=== PATIENT | male | born 1960 | race Caucasian/White ===

== ENCOUNTER → 2019-01-19 10:04 | Outpatient (CLI) | payer MEDICARE, SELFPAY ==
--- NOTE | 2019-01-19 | DI.CT.S_ITS ---
PROCEDURE: CT ANGIO HEAD INDICATIONS: Transient cerebral ischemic attack, unspecified TECHNIQUE: Precontrast 4.5 mm thick angled axial sections acquired from the foramen magnum to the vertex. After the administration of intravenous contrast, 1 mm thick sections acquired through the [place]. Postcontrast 4.5 mm thick sections then re-acquired from the foramen magnum to the vertex. 10 mm thick tfnexxy-vizgfkqtv-udutgwwztl (MIP) reformats were acquired of the central intracranial vasculature. For radiation dose reduction, the following was used: automated exposure control, adjustment of mA and/or kV according to patient size. COMPARISON: None. FINDINGS: Image quality: Excellent. Anterior circulation: Intracranial internal carotid arteries demonstrate scattered foci of atherosclerotic calcification. Within the cavernous internal carotid arteries, there is approximately 30% luminal narrowing seen on the right and approximately 20% luminal narrowing seen on the left. The flow within the paired anterior cerebral arteries is normal and symmetric. There is a diminutive right A1 segment, with a corresponding robust left A1 segment. This is considered to be a normal developmental variant of the [place], of typically no clinical consequence. The flow within the middle cerebral arteries is normal and symmetric. The anterior communicating artery is seen. No aneurysms are seen. Posterior circulation: Visualized portions of the vertebral arteries demonstrate normal caliber, and join to form a normal appearing basilar artery. Flow within the posterior cerebral arteries is normal and symmetric. No aneurysms are seen. CSF spaces: Ventricles are normal in size and shape. Basal cisterns are patent. No extra-axial fluid collections. Brain: No midline shift. No intracranial bleeds or masses. [place]-white matter interface appears intact. Skull and face: Calvarium and facial bones appear intact, without suspicious lesions. Sinuses: Visualized sinuses and mastoids are clear. IMPRESSION: No acute intracranial process is seen. No significant renal arterial abnormality can be seen. [place] anomaly noted, which is not regarded to be clinically significant. Dictated by: Duane Reyes M.D. on 01/19/2019 at 11:19 Approved by: Duane Reyes M.D. on 01/19/2019 at 11:22
== END ==
PROVIDERS: PCP Physician Assistant Medical; Visit Provider Physician Assistant Medical
DX: G45.9 Transient cerebral ischemic attack, unspecified (principal)
CPT/HCPCS: 70496; Q9967

== ENCOUNTER → 2019-02-05 11:24 | Outpatient (CLI) | payer MEDICARE, SELFPAY ==
--- NOTE | 2019-02-05 | DI.US.S_ITS ---
PROCEDURE: US CAROTID DOPPLER BI INDICATIONS: UNSPECIFIED VISUAL DISTURBANCES TECHNIQUE: Color and pulse Doppler interrogation was performed of both carotid systems, with image documentation and velocity measurements. COMPARISON: [facility], CT, CT ANGIO HEAD, 01/19/2019, 10:32. FINDINGS: Stenosis calculations are based on SRU (Society of Radiologists in Ultrasound) criteria. The flow velocities and the arterial waveforms are normal within both carotid arterial systems. Atherosclerotic plaque is seen on both sides. The estimated degree of internal carotid artery stenosis is less than 50%. Antegrade flow is confirmed within both vertebral arteries. However, there is abnormal flow seen within the right vertebral artery, which may be related to early subclavian steal. The antecubital brachial blood pressures are symmetric measuring 130/83 on the right and 135/72 on the left. This study is limited by body habitus. IMPRESSION: No hemodynamically significant stenosis is seen. Dictated by: Duane Reyes M.D. on 02/05/2019 at 16:10 Approved by: Duane Reyes M.D. on 02/05/2019 at 16:12
== END ==
PROVIDERS: PCP Physician Assistant Medical; Visit Provider Physician Assistant Medical
DX: H53.9 Unspecified visual disturbance (principal)
CPT/HCPCS: 93880

== ENCOUNTER → 2019-12-07 08:31 | Outpatient (CLI) | payer MEDICARE, SELFPAY ==
--- NOTE | 2019-12-07 | DI.MRI.S_ITS ---
PROCEDURE: MR HIP LT WO CON INDICATIONS: LEFT HIP PAIN TECHNIQUE: Noncontrast coronal T1 spin echo and STIR through the bony pelvis. Coronal and axial T2 fast spin echo with fat saturation, sagittal T1 spin echo, and oblique axial T2 fast spin echo with fat saturation through the hip. COMPARISON: None. FINDINGS: Image quality: There is mild motion artifact. Bones and joints: Bone marrow of the pelvic ring and proximal femurs demonstrate normal overall signal. No intraosseous lesions or fractures. No avascular necrosis of the femoral heads. The visualized lower lumbar spine demonstrates moderate degenerative disc disease at the lumbosacral junction. Tendons and ligaments: The gluteus medius and minimus tendons appear intact. There is mild edema along the myotendinous junction of the gluteus medius posteriorly suggestive of a mild strain. Minimal peritendinous edema is also demonstrated along the distal gluteal tendons at the greater trochanter. The adjacent proximal iliotibial band also appears intact. The iliopsoas tendon appears intact, without adjacent bursal fluid collections or evidence for impingement syndrome. The origin of the hamstring tendon is intact at the ischial tuberosity, as well as the associated sacrotuberous ligament. The straight and reflected heads of the rectus femoris muscle origin appear intact, as well as the conjoint tendon. The ligamentum teres appears intact where visualized. Labrum and cartilage: The acetabular labrum demonstrates degenerative signal with mild degenerative tearing in the anterosuperior labrum. Cartilage surface of the femoral head demonstrates mild thinning superiorly. The alpha angle of the femur is within normal limits at less than 55 degrees. Soft tissues: Visualized muscles demonstrate normal bulk and internal signal. Quadratus femoris muscle demonstrates no internal edema to suggest ischiofemoral impingement. The proximal sciatic neurovascular bundle appears normal adjacent to the hamstring tendons. No free pelvic fluid. There is mild trabeculation of the bladder wall, with evaluation limited due to incomplete distention, suggestive of chronic bladder outlet obstruction. There is heterogeneous enlargement of the prostate. Visualized bowel loops appear normal in caliber. IMPRESSION: 1. Mild degenerative tearing of the anterosuperior labrum. 2. Mild cartilage degeneration superiorly in the left hip. 3. Mild strain at the myotendinous junction of the gluteus medius posteriorly. Dictated by: Stephane Sherwood M.D. on 12/07/2019 at 9:57 Approved by: Stephane Sherwood M.D. on 12/07/2019 at 10:39
== END ==
PROVIDERS: PCP Family Medicine; Referring Provider Physician Assistant Medical; Visit Provider Physician Assistant Medical
DX: M25.552 Pain in left hip (principal); S73.192A Other sprain of left hip, initial encounter; M51.37 Other intervertebral disc degeneration, lumbosacral region; N32.89 Other specified disorders of bladder; N40.0 Benign prostatic hyperplasia without lower urinary tract symptoms
CPT/HCPCS: 73721

== ENCOUNTER → 2020-09-23 10:03 | Outpatient (CLI) | payer OTHER, MEDICARE, SELFPAY ==
--- NOTE | 2020-09-23 | DI.RAD.S_ITS ---
PROCEDURE: XR CHEST 2V INDICATIONS: Chest pain, unspecified TECHNIQUE: 2 views of the chest were acquired. COMPARISON: None. FINDINGS: Surgical changes and devices: None. Lungs and pleura: Scattered subsegmental scarring and/or atelectasis. No acute consolidation. No pleural effusions or pneumothorax. Mediastinum: Mediastinal contours are normal. Heart size is normal. Bones and chest wall: No suspicious bony abnormalities. Soft tissues appear unremarkable. IMPRESSION: No acute disease. Dictated by: Daniel Tee M.D. on 09/23/2020 at 11:29 Approved by: Daniel Tee M.D. on 09/23/2020 at 11:30
--- NOTE | 2020-09-23 | DI.RAD.S_ITS ---
PROCEDURE: XR THORACIC SPINE 2V INDICATIONS: Chest pain, unspecified TECHNIQUE: 3 views of the thoracic spine were acquired. COMPARISON: None. FINDINGS: Bones: No fractures or dislocations. No suspicious bony lesions. Twelve pairs of ribs are noted, and appear intact where visualized. Cervical thoracic spine fixation hardware. Moderate degenerative disc changes noted throughout the thoracic spine. Soft tissues: No paravertebral stripe thickening. IMPRESSION: 1. Multilevel degenerative disc disease. 2. No fracture. No acute osseous lesion. If symptoms and/or clinical suspicion for pathology persists, evaluation with MRI should be considered for further assessment. Dictated by: Clementine Yarbrough MD, PhD on 09/23/2020 at 16:28 Approved by: Clementine Yarbrough MD, PhD on 09/23/2020 at 16:31
[2020-09-23 11:03] LABS: Add Manual Diff / Slide Review NO; Basophils Absolute Auto 100 /uL (0-100); Basophils Percent Auto 0.9 % (0-2); Eosinophils Absolute Auto 200 /uL (0-450); Eosinophils Percent Auto 2.6 % (2-4); Hematocrit 45.1 % (41-53); Hemoglobin 15.1 g/dL (13.5-17.5); Lymphocytes Absolute Auto 2400 /uL (1100-4500); Lymphocytes Percent Auto 26.8 % (25-40); Mean Corpuscular HGB Conc 33.4 % (30-36); Mean Corpuscular Hemoglobin 28.1 PG (26-34); Mean Corpuscular Volume 84.2 fL (80-100); Monocytes Absolute Auto 700 /uL (0-900); Monocytes Percent Auto 8.3 % (3-14); Neutrophils Absolute Auto 5600 /uL (1500-7000); Neutrophils Percent Auto 61.4 % (50-75); Platelet Count 291 X10^3/uL (150-400); Red Blood Cell Count 5.36 X10^6/uL (4.5-5.9); Red Cell Distribution Width 14.2 % (11.6-14.8)
[2020-09-23 11:42] LABS: Alanine Aminotransferase 39 IU/L (<50); Albumin 4.5 g/dL (3.5-5.0); Albumin Globulin Ratio 1.6 (1.0-2.8); Alkaline Phosphatase 83 U/L (38-126); Aspartate Aminotransferase 27 IU/L (17-59); Bilirubin Total 0.4 mg/dL (0.2-1.3); Blood Urea Nitrogen 16 mg/dL (9-20); Calcium 9.2 mg/dL (8.4-10.2); Carbon Dioxide 25 mmol/L (22-32); Chloride 105 mmol/L (98-107); Estimated Glomerular Filt Rate > 60.0 mL/min (>60); Globulin 2.9 g/dL (1.7-4.1); Glucose 108 mg/dL (80-110); HEMOLYSIS < 15 (0-50); Potassium 4.2 mmol/L (3.4-5.1); Sodium 139 mmol/L (137-145); Total Protein 7.4 g/dL (6.3-8.2)
== END ==
PROVIDERS: PCP Physician Assistant; Referring Provider Physician Assistant; Visit Provider Physician Assistant
DX: R07.9 Chest pain, unspecified (principal); M54.9 Dorsalgia, unspecified; M47.814 Spondylosis without myelopathy or radiculopathy, thoracic region; I10 Essential (primary) hypertension
CPT/HCPCS: 36415; 71046; 72070; 80053; 85025

== ENCOUNTER → 2020-10-03 07:06 | Outpatient (CLI) | payer MEDICARE, OTHER, SELFPAY ==
--- NOTE | 2020-10-03 | DI.CT.S_ITS ---
PROCEDURE: CT CHEST ABDOMEN WO CON INDICATIONS: RIGHT UPPER QUADRANT PAIN, RIB PAIN TECHNIQUE: After the administration of oral contrast, 5 mm thick sections acquired from the pulmonary apices to the iliac crests. 5 mm thick coronal and sagittal reformats acquired, with additional 7 mm coronal MIP reformats through the lungs. For radiation dose reduction, the following was used: automated exposure control, adjustment of mA and/or kV according to patient size. COMPARISON: None. FINDINGS: Image quality: Excellent. CHEST: Lungs and pleura: No acute pulmonary opacities. No pleural effusions or pneumothorax. Central and peripheral airways are patent and normal in caliber. Mediastinum: Heart size is normal. No pericardial effusion. No mediastinal adenopathy by size criteria. Thoracic aorta and central pulmonary arteries are normal in size. Esophagus is normal in caliber. No hiatal hernia. Chest wall: A CT surface marker was placed at the lateral right lower chest, seen on series 7, image 65, and the underlying soft tissues shows no evidence of inflammation or cyst. The underlying deeper rib structures are normal as are the intercostal muscles, and the hepatic parenchyma deep to this area also appears normal. No axillary or supraclavicular adenopathy by size criteria. Thyroid gland appears normal where well visualized . ABDOMEN: Solid organs: Liver is normal in size. Gallbladder contains radiolucent gallstones, but shows no evidence of gallbladder inflammation or adjacent biliary distension.. Pancreas is normal in contours. Spleen is normal in size. No adrenal nodules. Both kidneys are normal in size, without hydronephrosis or nephrolithiasis. Peritoneum and bowel: Small and large bowel loops are normal in caliber and wall thickness. No free fluid or air. Nodes and vessels: No retroperitoneal or mesenteric adenopathy by size criteria. Aorta and inferior vena cava are normal in caliber. Miscellaneous: No ventral hernias. IMPRESSION: Etiology of right lateral lower chest rib pain is not identified. The CT surface marker placed allowed exact correlation with the soft tissues and underlying ribs and deeper visceral structures. No evidence of infection or neoplasm is found. Incidental note is made of radiolucent gallstones within the gallbladder lumen, without evidence of gallbladder inflammation or adjacent biliary distension. These gallstones measure approximately 5-10 mm in dimension and would be more accurately assessed if clinically indicated by ultrasound. Dictated by: Jorge Mercado M.D. on 10/03/2020 at 10:24 Approved by: Jorge Mercado M.D. on 10/03/2020 at 10:38
== END ==
PROVIDERS: PCP Physician Assistant; Referring Provider Physician Assistant; Visit Provider Physician Assistant
DX: R07.81 Pleurodynia (principal); R10.11 Right upper quadrant pain; R07.9 Chest pain, unspecified; K80.20 Calculus of gallbladder without cholecystitis without obstruction
CPT/HCPCS: 71250; 74150

== ENCOUNTER → 2020-10-21 09:03 | Outpatient (CLI) | payer OTHER, MEDICARE, SELFPAY ==
[2020-10-21 09:48] LABS: COVID19 -Nasal RAPID Negative (Negative)
== END ==
PROVIDERS: PCP Physician Assistant; Visit Provider Specialist
DX: Z20.822 Contact with and (suspected) exposure to COVID-19 (principal)
CPT/HCPCS: 87635; C9803

== ENCOUNTER 2020-10-22 06:48 | Day surgery (SDC) | payer OTHER, MEDICARE, SELFPAY ==
[2020-10-21 12:34] VITALS: BMI 40.0
[2020-10-22] VITALS (11 sets, daily range): BP systolic 126–142; BP diastolic 75–89; PULSE 60–76; RESP 12–16; TEMP 35.9–36.8; O2SAT 93–99; BMI 38.3
--- NOTE | 2020-10-22 | PATH_ITS ---
[facility] Accession Number: [id number] . 01 Material submitted: . gallbladder - GALLBLADDER . 02 Diagnosis: Gallbladder, Cholecystectomy: Chronic cholecystitis with cholelithiasis. Negative for dysplasia and malignancy. [facility] 10/27/2020 1032 Local . 02 Electronically signed: . Tatiana Ballrad MD, Pathologist NPI- [id number] . 01 Gross description: . The specimen is received in formalin, labeled gallbladder and consists of a 7.5 x 3.5 x 2.5 cm previously disrupted gallbladder with a 0.8 cm in diameter cystic duct. The serosa is rodriguez-pink and wrinkled. Opening reveals green viscous bile with multiple black, multifaceted choleliths within the specimen and within the specimen container ranging from 0.4-1.5 cm. The mucosa is rodriguez-pink and velvety and the wall thickness measures 0.1 cm. [employer] sections are submitted, to include the en face cystic duct margin (blue), in cassette A1. ([id number]) /V 10/23/2020 1200 Local . 02 Pathologist provided ICD-10: K80.60 . 02 CPT . 112016 Performed at: 01 [facility] [address], [place], [place] [id number] MD Stephane Nash MD Phone: [phone] Performed at: 02 [facility] [address] [place], [place] [id number] MD Tatiana Ballard MD Phone: [phone]
[2020-10-22] MEDS: LACTATED RINGERS 1,000 ML 42 ML IV ×2 (07:15→10:52)
--- NOTE | 2020-10-22 07:47 | PM.PREOP ---
Pre-operative Note COVID-19 COVID-19 status: Negative Result date/Date tested (Pos, Neg/Pending): 10/21/20 Interval Note History & Physical reviewed/Exam performed by Physician: Yes Changes to H&P: No
[2020-10-22] MEDS: CEFAZOLIN VIAL 3 GM in SODIUM CHLORIDE 0.9% 100 ML 200 ML IV (08:09)
--- NOTE | 2020-10-22 08:32 | SUR.OPER ---
Supine on padded OR bed, head on pillow, safety belt at thigh, left arm padded and tucked at side. Right arm secured on padded arm oard <90 degrees abduction. Legs uncrossed. Padded footboard in place. Tape over blanket to secure lower legs.
[2020-10-22] MEDS: BUPIVACAINE 0.5% (PF) VIAL 30 ML INJ (08:41)
[2020-10-22] MEDS: OXYCODONE/ACETAMINOPHEN 5/325 TABLET 1 TAB PO ×2 (10:11→10:48)
[2020-10-22] MEDS: HYDROMORPHONE 2 MG INJ IV (10:15)
--- NOTE | 2020-10-22 10:56 | PM.OP.1 ---
Operative Date/Time/Diagnoses Date of procedure: 10/22/20 Time of procedure: 10:10 Pre-op diagnosis: Cholelithiasis with cholecystitis Post-op diagnosis: same Procedure & Clinicians Procedure: Laparoscopic cholecystectomy Same procedure as scheduled: Yes Indications: Right upper quadrant right flank pain with nausea and imaging showing gallstones. Surgeon: Kingsley Mcrae Click Yes if Unassisted: Yes Anesthesia Type: General Operative Notes Findings: Gallbladder with omentum attached. Closure Type: primary Specimen(s): other (Gallbladder and stones) Prosthetic devices, grafts, tissues, transplants, or devices: None Estimated Blood Loss (mL): 5 Blood products transfused: none Procedure in detail: The patient was placed supine on the operating room table and underwent general endotracheal anesthesia. The patient was prepped and draped in the usual fashion. Local anesthetic was infiltrated above the umbilicus and linear incision made and carried down through fascia into the peritoneal cavity. Stay sutures of 0 Vicryl were placed in the fascia. A 12 mm port was placed. The abdomen was insufflated. The patient was repositioned. Local anesthetic was infiltrated in 3 areas under the right costal margin and 3 small incisions made followed by placing 3 5 mm ports under direct laparoscopic camera vision internally. The gallbladder was grasped and elevated. Omentum attached to the gallbladder was taken down with great care cauterizing everything as I went since the patient will be back on Plavix postoperatively. Once the omentum was free dissection was begun near its end. A ductal structure singular nature going directly the gallbladder was identified. I took great pains to make sure that it was singular and only entering the gallbladder. I also identified a bifurcated artery sending 2 branches up onto the gallbladder. I placed 3 clips on each of these and divided them leaving 2 on each structure to remain in the patient.. The gallbladder was then dissected from its bed in the liver using cautery. There was no spillage. There is also no bleeding. I a maintain meticulous hemostasis throughout. The gallbladder was detached and removed through the umbilical port. The ports were all removed. The port sites were all irrigated. The stay sutures at the umbilicus were elevated. A 2 0 PDS suture was placed between them. The Vicryl and PDS sutures were then tied. The skin in all areas was closed with interrupted 4 0 Vicryl subcuticular stitches. Steri-Strips and Mastisol were applied. Band-Aids were placed and the patient was awakened, extubated and taken to the recovery area in good condition. Complications: none Post-operative Condition: stable Disposition: PACU
--- NOTE | 2020-10-22 10:59 | SUR.PHASEI ---
1052 Pt Transfered to PACu phase II with SBAR report at bedside to Allison Tamez. Pt awake, alert, pain 08/09. Tolerating liquids.
== END 2020-10-22 11:35 | disposition home or self-care (01) ==
PROVIDERS: PCP Physician Assistant; Referring Provider Specialist; Visit Provider Specialist
PROC: 0FT44ZZ Resection of Gallbladder, Percutaneous Endoscopic Approach (ICD-10-PCS; CPT 47562; principal; 2020-10-22 07:45)
DX: K80.10 Calculus of gallbladder with chronic cholecystitis without obstruction (principal); I10 Essential (primary) hypertension; G47.33 Obstructive sleep apnea (adult) (pediatric); E03.9 Hypothyroidism, unspecified
CPT/HCPCS: 47562; J0330; J0690; J1100; J1170; J2250; J2405; J2704; J3010

== ENCOUNTER → 2021-01-21 07:04 | Outpatient (CLI) | payer MEDICARE, SELFPAY ==
[2021-01-21 08:55] LABS: Add Manual Diff / Slide Review NO; Basophils Absolute Auto 100 /uL (0-100); Eosinophils Absolute Auto 300 /uL (0-450); Eosinophils Percent Auto 4.8 % (2-4); Hematocrit 39.7 % (41-53); Hemoglobin 12.9 g/dL (13.5-17.5); Lymphocytes Absolute Auto 1900 /uL (1100-4500); Lymphocytes Percent Auto 30.5 % (25-40); Mean Corpuscular HGB Conc 32.4 % (30-36); Mean Corpuscular Hemoglobin 27.1 PG (26-34); Mean Corpuscular Volume 83.7 fL (80-100); Monocytes Absolute Auto 600 /uL (0-900); Monocytes Percent Auto 9.6 % (3-14); Neutrophils Absolute Auto 3400 /uL (1500-7000); Neutrophils Percent Auto 54.1 % (50-75); Platelet Count 241 X10^3/uL (150-400); Red Blood Cell Count 4.74 X10^6/uL (4.5-5.9); White Blood Cell Count 6.2 X10^3/uL (4.5-11.0)
[2021-01-21 09:08] LABS: Alanine Aminotransferase 40 IU/L (<50); Albumin 3.9 g/dL (3.5-5.0); Albumin Globulin Ratio 1.6 (1.0-2.8); Alkaline Phosphatase 86 U/L (38-126); Aspartate Aminotransferase 25 IU/L (17-59); BUN Creatinine Ratio 18.4 (6-22); Bilirubin Total 0.4 mg/dL (0.2-1.3); Blood Urea Nitrogen 18 mg/dL (9-20); Carbon Dioxide 27 mmol/L (22-32); Chloride 108 mmol/L (98-107); Cholesterol 164 mg/dL (140-199); Estimated Glomerular Filt Rate > 60.0 mL/min (>60); Globulin 2.5 g/dL (1.7-4.1); Glucose 111 mg/dL (80-110); HDL Cholesterol 36 mg/dL (40-60); HEMOLYSIS < 15 (0-50); LDL Cholesterol Calculated 90 mg/dL (<100); Potassium 4.4 mmol/L (3.4-5.1); Sodium 141 mmol/L (137-145); Total Protein 6.4 g/dL (6.3-8.2); Triglycerides 189 mg/dL (35-150)
[2021-01-21 09:34] LABS: HEMOLYSIS < 15 (0-50); Iron 66 ug/dL (49-181)
[2021-01-21 09:38] LABS: Ferritin 12 ng/mL (18-464)
[2021-01-21 09:39] LABS: Thyroid Stimulating Hormone 4.39 uIU/mL (0.47-4.68)
[2021-01-21 09:44] LABS: Percent Iron Saturation 16 % (20-50); Total Iron Binding Capacity 417 ug/dL (261-462); Transferrin 333 mg/dL (206-381)
[2021-01-21 10:10] LABS: Folate 4.4 ng/mL (2.76-20.0); Vitamin B12 301 pg/mL (239-931)
== END ==
PROVIDERS: PCP Physician Assistant; Referring Provider Physician Assistant; Visit Provider Physician Assistant
DX: Z98.84 Bariatric surgery status (principal); I10 Essential (primary) hypertension; E03.9 Hypothyroidism, unspecified
CPT/HCPCS: 36415; 80053; 80061; 82607; 82728; 82746; 83540; 83550; 84443; 85025

== ENCOUNTER → 2021-02-24 12:48 | Outpatient (CLI) | payer MEDICARE, SELFPAY ==
[2021-02-24 14:55] LABS: Alanine Aminotransferase 33 IU/L (<50); Albumin 4.4 g/dL (3.5-5.0); Albumin Globulin Ratio 1.8 (1.0-2.8); Alkaline Phosphatase 81 U/L (38-126); Aspartate Aminotransferase 23 IU/L (17-59); BUN Creatinine Ratio 16.4 (6-22); Bilirubin Total 0.5 mg/dL (0.2-1.3); Blood Urea Nitrogen 18 mg/dL (9-20); Calcium 9.3 mg/dL (8.4-10.2); Carbon Dioxide 25 mmol/L (22-32); Chloride 107 mmol/L (98-107); Estimated Glomerular Filt Rate > 60.0 mL/min (>60); Globulin 2.5 g/dL (1.7-4.1); Glucose 96 mg/dL (80-110); HEMOLYSIS < 15 (0-50); Potassium 4.4 mmol/L (3.4-5.1); Sodium 142 mmol/L (137-145); Total Protein 6.9 g/dL (6.3-8.2)
== END ==
PROVIDERS: PCP Physician Assistant; Referring Provider Physician Assistant; Visit Provider Physician Assistant
DX: F10.14 Alcohol abuse with alcohol-induced mood disorder (principal)
CPT/HCPCS: 36415; 80053

== ENCOUNTER → 2021-03-10 08:33 | Outpatient (CLI) | payer MEDICARE, SELFPAY ==
--- NOTE | 2021-03-10 | DI.RAD.S_ITS ---
PROCEDURE: XR LUMBAR SPINE 2-3V INDICATIONS: Low back pain, unspecified TECHNIQUE: 2 views of the lumbar spine were acquired. COMPARISON: [facility], CT, CT CHEST ABDOMEN WO CON, 10/03/2020, 7:14. [facility], CR, XR CERVICAL SPINE 2V OR 3V, 03/10/2021, 8:31. FINDINGS: This study is limited by body habitus. Bones: 5 psc-tlh-jdpcqrs vertebrae are present. There is minimal dextroconvex thoracolumbar scoliotic curvature. No focal AP alignment abnormality is seen. No vertebral body compression fractures. No suspicious bony lesions. There is moderate disc space narrowing at L5-S1, with mild disc space narrowing at L2-L3. Lower lumbar spine facet arthropathy is seen. Soft tissues: Overlying bowel gas pattern is normal. No suspicious soft tissue calcifications. IMPRESSION: Lumbar spine degenerative changes are seen, which are worst at the L5-S1 level. Dictated by: Duane Reyes M.D. on 03/10/2021 at 8:18 Approved by: Duane Reyes M.D. on 03/10/2021 at 8:20
--- NOTE | 2021-03-10 | DI.RAD.S_ITS ---
PROCEDURE: XR CERVICAL SPINE 2V OR 3V INDICATIONS: Low back pain, unspecified TECHNIQUE: 4 view(s) of the cervical spine were acquired. COMPARISON: [facility], MR, MR CERVICAL SPINE WO CON, 09/09/2015, 11:12. [facility], CR, XR LUMBAR SPINE 2-3V, 03/10/2021, 8:31. [facility], CR, XR THORACIC SPINE 2V, 09/23/2020, 10:20. FINDINGS: Bones: No fractures or dislocations to the T1 level. The lateral masses of C1 appear intact on the odontoid view. No suspicious bony lesions. Reversal of the normal cervical lordosis is seen, with the apex at the C5-C6 level. There is minimal anterolisthesis seen at C4-C5 and C5-C6. Mild disc space narrowing is seen at C4-C5, with moderate to severe disc space narrowing at C5-C6 and at least moderate disc space narrowing at C6-C7. Bridging anterior osteophytes are seen C4 through C7. Anterior fixation hardware is seen at C7-T1, without clementine findings of failure or loosening. Soft tissues: No prevertebral soft tissue swelling. The visualized lung apices are unremarkable. IMPRESSION: Reversal of the normal cervical lordosis is seen. This is commonly observed in patients with muscular spasm. Relatively prominent lower cervical spine degenerative changes are seen. Unremarkable C7-T1 anterior fixation hardware. Dictated by: Duane Reyes M.D. on 03/10/2021 at 8:16 Approved by: Duane Reyes M.D. on 03/10/2021 at 8:18
== END ==
PROVIDERS: PCP Physician Assistant; Referring Provider Physician Assistant; Visit Provider Physician Assistant
DX: M54.2 Cervicalgia (principal); M54.50 Low back pain, unspecified; M47.812 Spondylosis without myelopathy or radiculopathy, cervical region; M47.817 Spondylosis without myelopathy or radiculopathy, lumbosacral region; Z98.1 Arthrodesis status
CPT/HCPCS: 72040; 72100

== ENCOUNTER → 2021-03-11 09:00 | Outpatient (CLI) | payer MEDICARE, SELFPAY ==
[2021-03-11 10:30] LABS: Alanine Aminotransferase 24 IU/L (<50); Albumin 4.1 g/dL (3.5-5.0); Albumin Globulin Ratio 1.6 (1.0-2.8); Alkaline Phosphatase 70 U/L (38-126); Aspartate Aminotransferase 22 IU/L (17-59); BUN Creatinine Ratio 16.9 (6-22); Bilirubin Total 0.5 mg/dL (0.2-1.3); Blood Urea Nitrogen 20 mg/dL (9-20); Calcium 9.5 mg/dL (8.4-10.2); Carbon Dioxide 26 mmol/L (22-32); Chloride 107 mmol/L (98-107); Estimated Glomerular Filt Rate > 60.0 mL/min (>60); Globulin 2.5 g/dL (1.7-4.1); Glucose 126 mg/dL (80-110); HEMOLYSIS < 15 (0-50); Potassium 4.4 mmol/L (3.4-5.1); Sodium 141 mmol/L (137-145); Total Protein 6.6 g/dL (6.3-8.2)
== END ==
PROVIDERS: PCP Physician Assistant; Referring Provider Physician Assistant; Visit Provider Physician Assistant
DX: Z79.899 Other long term (current) drug therapy (principal)
CPT/HCPCS: 36415; 80053

== ENCOUNTER → 2021-08-13 08:48 | Outpatient (CLI) | payer MEDICARE, SELFPAY ==
[2021-08-13 10:21] LABS: Add Manual Diff / Slide Review NO; Basophils Absolute Auto 100 /uL (0-100); Basophils Percent Auto 0.9 % (0-2); Eosinophils Absolute Auto 200 /uL (0-450); Eosinophils Percent Auto 3.3 % (2-4); Hematocrit 43.5 % (41-53); Hemoglobin 14.5 g/dL (13.5-17.5); Lymphocytes Absolute Auto 2000 /uL (1100-4500); Lymphocytes Percent Auto 28.9 % (25-40); Mean Corpuscular HGB Conc 33.4 % (30-36); Mean Corpuscular Hemoglobin 28.2 PG (26-34); Mean Corpuscular Volume 84.5 fL (80-100); Monocytes Absolute Auto 600 /uL (0-900); Neutrophils Absolute Auto 4100 /uL (1500-7000); Neutrophils Percent Auto 58.9 % (50-75); Platelet Count 260 X10^3/uL (150-400); Red Blood Cell Count 5.15 X10^6/uL (4.5-5.9); Red Cell Distribution Width 13.6 % (11.6-14.8); White Blood Cell Count 6.9 X10^3/uL (4.5-11.0)
[2021-08-13 10:31] LABS: Hemoglobin A1C% w Est Avg Glu 6.3 % (4.0-6.0)
[2021-08-13 10:50] LABS: Alanine Aminotransferase 31 IU/L (<50); Albumin 4.6 g/dL (3.5-5.0); Albumin Globulin Ratio 1.8 (1.0-2.8); Alkaline Phosphatase 83 U/L (38-126); Aspartate Aminotransferase 24 IU/L (17-59); BUN Creatinine Ratio 18.3 (6-22); Bilirubin Total 0.6 mg/dL (0.2-1.3); Blood Urea Nitrogen 20 mg/dL (9-20); Calcium 9.4 mg/dL (8.4-10.2); Carbon Dioxide 28 mmol/L (22-32); Chloride 106 mmol/L (98-107); Estimated Glomerular Filt Rate > 60 mL/min (>60); Globulin 2.5 g/dL (1.7-4.1); Glucose 116 mg/dL (80-110); HEMOLYSIS < 15 (0-50); Potassium 4.5 mmol/L (3.4-5.1); Sodium 142 mmol/L (137-145); Total Protein 7.1 g/dL (6.3-8.2)
[2021-08-13 11:17] LABS: TSH w/ Reflex to FT4 2.99 uIU/mL (0.47-4.68)
== END ==
PROVIDERS: PCP Physician Assistant; Referring Provider Physician Assistant; Visit Provider Physician Assistant
DX: R73.9 Hyperglycemia, unspecified (principal); E03.9 Hypothyroidism, unspecified
CPT/HCPCS: 36415; 80053; 83036; 84443; 85025

== ENCOUNTER → 2022-01-13 14:36 | Outpatient (CLI) | payer MEDICARE, SELFPAY ==
[2022-01-13 17:15] LABS: Urine N gonorrhoeae NOT DETECTED
[2022-01-13 17:22] LABS: Urine Chlamydia NOT DETECTED
[2022-01-14 16:44] LABS: HIV 1 & 2 Ab/Ag 4th Gen Combo NEGATIVE (NEGATIVE)
== END ==
PROVIDERS: PCP Family Medicine; Referring Provider Family Medicine; Visit Provider Family Medicine
DX: B00.2 Herpesviral gingivostomatitis and pharyngotonsillitis (principal)
CPT/HCPCS: 36415; 86695; 86696; 87389; 87491; 87591

== ENCOUNTER → 2022-02-08 06:43 | Outpatient (CLI) | payer MEDICARE, SELFPAY ==
--- NOTE | 2022-02-08 06:45 | DI.MRI.S_ITS ---
PROCEDURE: MR LUMBAR SPINE WO CON INDICATIONS: LLQ SWELLING/ABD PAIN/SPINAL STENOSIS LUMBAR TECHNIQUE: Noncontrast sagittal T1 spin echo and T2 fast echo, sagittal STIR, and T2 fast spin echo through the lumbar spine. In cases with scoliosis, additional coronal T2 fast spin echo may be performed. COMPARISON: None. FINDINGS: Image quality: Motion degraded on multiple sequences Alignment: Trace retrolisthesis of L5 on S1 Marrow: No acute fracture. Scattered Modic changes. Possible hemangioma of L1. Cord: Cord terminates in appropriate position. Normal appearance of the cauda equina nerve roots. Soft tissues: No abdominal aortic aneurysm. Soft tissues are unremarkable. Specific levels: T12-L1: Small diffuse disc bulge. No stenosis. Mild left neural foraminal narrowing. L1-L2: Small diffuse disc bulge. Mild facet arthropathy. Mild left neural foraminal narrowing. L2-L3: Moderate diffuse disc bulge. Minimal bilateral subarticular recess narrowing. Mild bilateral facet arthropathy. Fztb-gs-bqotkbgy right and mild left neural foraminal narrowing. L3-L4: Moderate diffuse disc bulge and rrnq-sz-xrdgflfq facet arthropathy. There is myrx-ig-hkrehfrw bilateral subarticular recess narrowing. Mild right and left neural foraminal narrowing. L4-L5: Moderate to severe diffuse disc bulge. Moderate facet arthropathy bilaterally. Moderate left subarticular recess narrowing. Effacement of the right subarticular recess, due to a combination of disc disease and a small osteophyte/synovial cyst arising from the right-sided facet (6/4), displacing the right L5 nerve root. Wdiq-vh-ewwpobpw right and moderate left neural foraminal narrowing. L5-S1: Diffuse disc bulge and tvgv-ys-quzrmuks facet arthropathy. Mild bilateral neural foraminal narrowing. IMPRESSION: Moderate overall spondylosis as described above. The worst level is L4-L5, in which disc disease and facet arthropathy combine to narrow the thecal sac. In particular, the traversing right L5 nerve root is displaced due to an adjacent medially projecting facet osteophyte/synovial cyst (6/4). Dictated by: Andreas Brooks M.D. on 02/08/2022 at 14:27 Approved by: Andreas Brooks M.D. on 02/08/2022 at 14:34
--- NOTE | 2022-02-08 06:46 | DI.US.S_ITS ---
PROCEDURE: US ABDOMEN COMPLETE INDICATIONS: ABDOMINAL WALL LUMPS; PAIN TECHNIQUE: Real-time scanning was performed of the abdominal and retroperitoneal organs, with image documentation. COMPARISON: None. FINDINGS: Liver: Liver is normal in size and homogeneous in echotexture. Gallbladder: The gallbladder is surgically absent. Biliary ducts: Intrahepatic bile ducts are non-dilated. Extrahepatic bile duct caliber measures 5.3 mm. Normal is 6-7 mm or less in diameter, or 10 mm or less post-cholecystectomy. Pancreas: Visualized portions of the pancreas are sonographically normal. Spleen: Spleen is normal in size and homogeneous in echotexture. Kidneys: Kidneys are normal in size and echotexture. Right kidney measures 11.3 cm long; left kidney measures 11.6 cm long. No hydronephrosis or nephrolithiasis. No solid masses. Aorta: Visualized aorta is normal in caliber at less than 3 cm. The proximal aorta is not visualized due to bowel gas. Iliacs: Proximal common iliac arteries are normal in caliber at less than 2.5 cm. IVC: The IVC is not visualized due to bowel gas. Miscellaneous: No free abdominal fluid. No ventral wall hernias or other mass lesions in the areas palpated by the patient. IMPRESSION: 1. No suspicious abdominal wall mass lesions where palpated by the patient. 2. Otherwise unremarkable abdominal ultrasound where visualized. Dictated by: Mariel Garg M.D. on 02/08/2022 at 10:59 Approved by: Mariel Garg M.D. on 02/08/2022 at 11:00
== END ==
PROVIDERS: PCP Family Medicine; Referring Provider Family Medicine; Visit Provider Physical Medicine & Rehabilitation Pain Medicine
DX: M48.062 Spinal stenosis, lumbar region with neurogenic claudication (principal); M47.816 Spondylosis without myelopathy or radiculopathy, lumbar region; M51.36 Other intervertebral disc degeneration, lumbar region; R19.04 Left lower quadrant abdominal swelling, mass and lump; R10.9 Unspecified abdominal pain; E11.9 Type 2 diabetes mellitus without complications; I10 Essential (primary) hypertension; E03.9 Hypothyroidism, unspecified; D50.9 Iron deficiency anemia, unspecified; E61.9 Deficiency of nutrient element, unspecified; Z98.84 Bariatric surgery status
CPT/HCPCS: 36415; 72148; 76700; 80053; 80061; 82043; 82306; 82525; 82570; 82607; 82746; 83036; 83735; 84255; 84425; 84590; 84630; 85025

== ENCOUNTER → 2022-02-08 08:13 | Outpatient (CLI) | payer MEDICARE, SELFPAY ==
[2022-02-08 12:43] LABS: Add Manual Diff / Slide Review NO; Basophils Absolute Auto 100 /uL (0-100); Basophils Percent Auto 1.1 % (0-2); Eosinophils Absolute Auto 200 /uL (0-450); Eosinophils Percent Auto 3.1 % (2-4); Hematocrit 42.2 % (41-53); Hemoglobin 14.3 g/dL (13.5-17.5); Lymphocytes Absolute Auto 2000 /uL (1100-4500); Lymphocytes Percent Auto 33.4 % (25-40); Mean Corpuscular Volume 82.4 fL (80-100); Monocytes Absolute Auto 400 /uL (0-900); Monocytes Percent Auto 7.4 % (3-14); Neutrophils Absolute Auto 3300 /uL (1500-7000); Platelet Count 295 X10^3/uL (150-400); Red Blood Cell Count 5.12 X10^6/uL (4.5-5.9); Red Cell Distribution Width 14.1 % (11.6-14.8)
[2022-02-08 12:47] LABS: Hemoglobin A1C% w Est Avg Glu 5.3 % (4.0-6.0)
[2022-02-08 13:10] LABS: Alanine Aminotransferase 31 IU/L (<50); Albumin 4.3 g/dL (3.5-5.0); Albumin Globulin Ratio 1.7 (1.0-2.8); Alkaline Phosphatase 94 U/L (38-126); Aspartate Aminotransferase 23 IU/L (17-59); BUN Creatinine Ratio 22.2 (6-22); Bilirubin Total 0.7 mg/dL (0.2-1.3); Blood Urea Nitrogen 22 mg/dL (9-20); Calcium 9.2 mg/dL (8.4-10.2); Carbon Dioxide 27 mmol/L (22-32); Chloride 104 mmol/L (98-107); Cholesterol 82 mg/dL (140-199); Estimated Glomerular Filt Rate > 60 mL/min (>60); Globulin 2.5 g/dL (1.7-4.1); Glucose 81 mg/dL (80-110); HDL Cholesterol 23 mg/dL (40-60); HEMOLYSIS < 15 (0-50); LDL Cholesterol Calculated 45 mg/dL (<100); Magnesium 2.1 mg/dL (1.6-2.3); Potassium 3.7 mmol/L (3.4-5.1); Sodium 141 mmol/L (137-145); Total Protein 6.8 g/dL (6.3-8.2); Triglycerides 70 mg/dL (35-150)
[2022-02-08 14:13] LABS: Folate 10.3 ng/mL (2.76-20.0); Vitamin B12 350 pg/mL (239-931)
[2022-02-08 14:24] LABS: Creatinine Urine Random 206.9 mg/dL
[2022-02-08 14:27] LABS: Microalbumi Creatinin Ratio Ur 8.6 ug/mg CR (<30); Microalbumin Urine Random 1.8 mg/dL (0-1.6)
[2022-02-09 13:36] LABS: Selenium 127 ug/L (93-198)
[2022-02-12 10:09] LABS: Vitamin A 47.3 ug/dL (22.0-69.5)
[2022-02-16 09:48] LABS: Vitamin B1 113.2 nmol/L (66.5-200.0)
== END ==
PROVIDERS: PCP Family Medicine; Referring Provider Family Medicine; Visit Provider Family Medicine
DX: E11.9 Type 2 diabetes mellitus without complications; I10 Essential (primary) hypertension; E03.9 Hypothyroidism, unspecified; D50.9 Iron deficiency anemia, unspecified; E61.9 Deficiency of nutrient element, unspecified; Z98.84 Bariatric surgery status
CPT/HCPCS: 36415; 80053; 80061; 82043; 82306; 82525; 82570; 82607; 82746; 83036; 83735; 84255; 84425; 84590; 84630; 85025

== ENCOUNTER → 2022-07-05 07:24 | Outpatient (CLI) | payer MEDICARE, SELFPAY | PROVIDERS: PCP Family Medicine; Visit Provider Nurse Practitioner Family | DX: R30.0 Dysuria (principal) | CPT/HCPCS: 87086 ==

== ENCOUNTER → 2022-07-05 07:52 | Outpatient (CLI) | payer MEDICARE, SELFPAY ==
[2022-07-05 09:47] LABS: Add Manual Diff / Slide Review NO; Basophils Absolute Auto 100 /uL (0-100); Basophils Percent Auto 1.2 % (0-2); Eosinophils Absolute Auto 200 /uL (0-450); Eosinophils Percent Auto 3.8 % (2-4); Hematocrit 43.1 % (41-53); Hemoglobin 14.6 g/dL (13.5-17.5); Lymphocytes Absolute Auto 2100 /uL (1100-4500); Lymphocytes Percent Auto 32.8 % (25-40); Mean Corpuscular HGB Conc 33.9 % (30-36); Mean Corpuscular Hemoglobin 29.2 PG (26-34); Mean Corpuscular Volume 86.1 fL (80-100); Monocytes Absolute Auto 500 /uL (0-900); Monocytes Percent Auto 8.1 % (3-14); Neutrophils Absolute Auto 3400 /uL (1500-7000); Neutrophils Percent Auto 54.1 % (50-75); Platelet Count 219 X10^3/uL (150-400); Red Blood Cell Count 5.01 X10^6/uL (4.5-5.9); Red Cell Distribution Width 15.2 % (11.6-14.8); White Blood Cell Count 6.3 X10^3/uL (4.5-11.0)
[2022-07-05 09:50] LABS: Hemoglobin A1C% w Est Avg Glu 5.6 % (4.0-6.0)
[2022-07-05 10:01] LABS: Alanine Aminotransferase 43 IU/L (<50); Albumin 4.5 g/dL (3.5-5.0); Albumin Globulin Ratio 1.5 (1.0-2.8); Alkaline Phosphatase 84 U/L (38-126); Aspartate Aminotransferase 35 IU/L (17-59); BUN Creatinine Ratio 22.8 (6-22); Bilirubin Total 0.9 mg/dL (0.2-1.3); Blood Urea Nitrogen 21 mg/dL (9-20); Calcium 9.1 mg/dL (8.4-10.2); Carbon Dioxide 28 mmol/L (22-32); Chloride 103 mmol/L (98-107); Cholesterol 142 mg/dL (140-199); Estimated Glomerular Filt Rate > 60 mL/min (>60); Glucose 102 mg/dL (80-110); HDL Cholesterol 45 mg/dL (40-60); HEMOLYSIS 17 (0-50); LDL Cholesterol Calculated 75 mg/dL (<100); Potassium 4.2 mmol/L (3.4-5.1); Sodium 140 mmol/L (137-145); Total Protein 7.5 g/dL (6.3-8.2); Triglycerides 110 mg/dL (35-150)
[2022-07-05 10:33] LABS: TSH w/ Reflex to FT4 2.04 uIU/mL (0.47-4.68)
== END ==
PROVIDERS: PCP Family Medicine; Referring Provider Family Medicine; Visit Provider Family Medicine
DX: E11.9 Type 2 diabetes mellitus without complications (principal); I10 Essential (primary) hypertension; E03.9 Hypothyroidism, unspecified; D50.9 Iron deficiency anemia, unspecified; E78.2 Mixed hyperlipidemia; R30.0 Dysuria
CPT/HCPCS: 36415; 80053; 80061; 83036; 84443; 85025; 87086

== ENCOUNTER → 2022-07-27 09:14 | Outpatient (CLI) | payer MEDICARE, SELFPAY ==
--- NOTE | 2022-07-27 | DI.RAD.S_ITS ---
PROCEDURE: XR ELBOW LT MIN 3V INDICATIONS: ELBOW PAIN TECHNIQUE: 3 views of the elbow were acquired. COMPARISON: None. FINDINGS: Bones: No fractures or dislocations. No suspicious bony lesions. Soft tissues: No elbow joint effusion. No suspicious soft tissue calcifications. IMPRESSION: No evidence acute bony abnormality of the left elbow. If clinical suspicion and/or symptoms persist, further assessment with repeat plain films, or advanced imaging (e.g., CT, MRI, or bone scan) may be helpful for further assessment. Dictated by: Otoniel Wynn M.D. on 07/27/2022 at 9:55 Approved by: Otoniel Wynn M.D. on 07/27/2022 at 9:56
== END ==
PROVIDERS: PCP Physician Assistant; Referring Provider Physician Assistant; Visit Provider Physician Assistant
DX: M25.522 Pain in left elbow (principal)
CPT/HCPCS: 73080

== ENCOUNTER → 2022-08-23 08:29 | Outpatient (CLI) | payer OTHER, SELFPAY ==
--- NOTE | 2022-08-23 08:30 | DI.RAD.S_ITS ---
PROCEDURE: XR LUMBAR SPINE MIN 4V INDICATIONS: low back pain TECHNIQUE: 5 views of the lumbar spine were acquired, including bilateral oblique views. COMPARISON: [facility], [place], XR LUMBAR SPINE 2-3V, 03/10/2021, 8:31. FINDINGS: Bones: 5 nonrib-bearing vertebrae are present. There is notable dextroconvex thoracolumbar curvature. Moderate disc space narrowing at L5-S1, unchanged. Mild disc space narrowing at L2-3. No vertebral body compression fractures. No suspicious bony lesions. Soft tissues: Overlying bowel gas pattern is normal. No suspicious soft tissue calcifications. Oblique images: No pars defects. IMPRESSION: Stable interval exam with degenerative changes most notable at L5-S1. Dictated by: Kira Vasquez M.D. on 08/23/2022 at 15:57 Approved by: Kira Vasquez M.D. on 08/23/2022 at 16:00
== END ==
PROVIDERS: PCP Physician Assistant; Referring Provider Anesthesiology; Visit Provider Anesthesiology
DX: M54.50 Low back pain, unspecified (principal); M47.817 Spondylosis without myelopathy or radiculopathy, lumbosacral region
CPT/HCPCS: 72110

== ENCOUNTER 2022-09-15 07:32 | Outpatient (CLI) | payer OTHER, SELFPAY ==
--- NOTE | 2022-09-15 07:33 | DI.RAD.S_ITS ---
PROCEDURE: PAIN L INTERLAMINAR/CAUDAL INJ INDICATIONS: L4-5 ILESI COMPARISON: [facility], CR, XR LUMBAR SPINE MIN 4V, 08/23/2022, 8:35. FINDINGS: Fluoroscopic spot filming was performed to verify placement of a spinal needle at the L4-L5 level, as labeled on the films. Appropriate location of the needle tip was confirmed by injection of iodinated contrast. IMPRESSION: Intraprocedural examination within normal limits. Dictated by: Duane Reyes M.D. on 09/15/2022 at 12:16 Approved by: Duane Reyes M.D. on 09/15/2022 at 12:16
[2022-09-15 07:35] VITALS: BP 131/71; PULSE 66; RESP 18; TEMP 36.4; O2SAT 98
[2022-09-15 08:05] VITALS: BP 130/64; PULSE 67; RESP 20; O2SAT 98
[2022-09-15 08:10] VITALS: BP 121/60; PULSE 63; RESP 12; O2SAT 98
[2022-09-15] MEDS: methylPREDNISolone acetate 80 MG/ML VIAL INJ (08:13)
[2022-09-15] MEDS: IOPAMIDOL 15 ML VIAL 3 ML INJ (08:13)
[2022-09-15 08:15] VITALS: BP 119/71; PULSE 59; RESP 21; O2SAT 96
[2022-09-15] MEDS: BUPIVACAINE 0.25% (PF) VIAL 2 ML INJ (08:15)
[2022-09-15 08:25] VITALS: BP 140/97; PULSE 71; RESP 16; O2SAT 97
--- NOTE | 2022-09-15 14:02 | P.PCN_ITS ---
Date/Time/Diagnoses Date of procedure: 09/15/22 Time of procedure: 08:00 Procedure Notes Physician: Louie Hauser Total Fluoroscopy time (seconds): 23 Total sedation minutes: 0 Procedure in detail & Post-procedure care: L4-5 Interlaminar Epidural Steroid Injection Indications: Navdeep is presenting for treatment of lumbar radiculopathy with low back and leg pain. Preoperative diagnosis: Lumbar radiculopathy Postoperative diagnosis: Same Focused Examination: Ax3 Mood and affect are normal Vital Signs: VSS Consent: Following review of allergies and potential side effects/complications, including, but not necessarily limited to, infection, allergic reaction, local tissue breakdown, stroke, temporary or permanent nerve injury, paralysis, and possible , the patient indicated that they understood and agreed to proceed.? An informed consent document was signed by the patient, witnessed by a nurse and placed in the patient's chart.? Additionally, other treatment options including medications and physical therapy were reviewed with the patient. All questions were answered. Site was then marked. Anesthesia: Local Position: Prone Monitoring: NIBP, Pulse oximetry, 3 lead EKG Needle used: 18 G 3.5? Tuohy Contrast: Isovue 300M Injectate: Depo-Medrol 80 mg with 0.25% Bupivacaine 2 mL Technique: The skin was prepped with chloraprep and then draped in a sterile fashion. Time out was performed as per protocol. Oxygen applied via NC. Skin and subcutaneous structures of the needle entry site was then infiltrated with 3 mL of lidocaine 1%. Under AP, lateral and contralateral oblique fluoroscopic control, the Tuohy needle was guided into the L4-5 epidural space. The space was accessed with loss of resistance technique. Isovue 300M was then injected and the spread was consistent with the epidural space. There was no evidence for intravascular or intrathecal uptake. After negative aspiration, the above- mentioned injectate was then slowly administered and the needle withdrawn. The patient expressed no unusual discomfort or paresthesias during the injection. Band-Aids applied to injection sites. EBL: less than 1 ml Complications: None Post Procedure: Patient was taken to the recovery and monitored. The patient was provided a Pain Log to continue to record the patient's response to the target- specific procedure prior to the patient's follow-up visit with the referring physician. Patient was stable upon discharge. Detailed post procedure instructions were provided. Patient was asked to call in the event of worsening pain, fever, weakness, numbness or bladder or bowel incontinence.
== END 2022-09-15 08:30 | disposition home or self-care (01) ==
LOC: RAD 07:32
PROVIDERS: PCP Physician Assistant; Referring Provider Anesthesiology; Visit Provider Anesthesiology
DX: M54.16 Radiculopathy, lumbar region (principal)
CPT/HCPCS: 62323; J1040; J3490

== ENCOUNTER → 2022-10-11 11:18 | Outpatient (CLI) | payer OTHER, SELFPAY ==
--- NOTE | 2022-10-11 11:20 | DI.RAD.S_ITS ---
PROCEDURE: XR THORACIC SPINE 3V INDICATIONS: Thoracic back pain TECHNIQUE: 3 views of the thoracic spine were acquired. COMPARISON: [facility], CR, XR THORACIC SPINE 2V, 09/23/2020, 10:20. FINDINGS: Bones: No fractures or dislocations. No suspicious bony lesions. 12 pairs of ribs are noted, and appear intact where visualized. Minimal disc height loss of the mid to lower thoracic spine. Soft tissues: No paravertebral stripe thickening. IMPRESSION: No acute bony abnormality. Dictated by: Dandre Hester M.D. on 10/11/2022 at 12:32 Approved by: Dandre Hester M.D. on 10/11/2022 at 12:34
--- NOTE | 2022-10-11 11:20 | DI.RAD.S_ITS ---
PROCEDURE: XR HIP W PEL IF DONE VIDAL MIN 4V INDICATIONS: hip pain TECHNIQUE: AP pelvis with lateral view(s) of the bilateral hip(s). COMPARISON: None. FINDINGS: Bones: No fractures or dislocations. Pelvic ring appears intact. No suspicious bony lesions. Soft tissues: The visualized bowel gas pattern is normal. No suspicious soft tissue calcifications. IMPRESSION: No acute bony abnormality. No significant osteoarthritis. Dictated by: Dandre Hester M.D. on 10/11/2022 at 12:31 Approved by: Dandre Hester M.D. on 10/11/2022 at 12:32
== END ==
PROVIDERS: PCP Physician Assistant; Referring Provider Anesthesiology; Visit Provider Anesthesiology
DX: M54.6 Pain in thoracic spine (principal); M25.551 Pain in right hip; M25.552 Pain in left hip
CPT/HCPCS: 72072; 73522

== ENCOUNTER 2022-10-27 07:46 | Outpatient (CLI) | payer OTHER, SELFPAY ==
--- NOTE | 2022-10-27 07:47 | DI.RAD.S_ITS ---
PROCEDURE: PAIN L/S FACET INJ/BLK 1ST VIDAL COMPARISON: None. INDICATIONS: SPONDYLOSIS FINDINGS: Intraprocedural fluoroscopy was provided for guidance and anatomical localization. Please see the procedure report for further details. IMPRESSION: Intraprocedural fluoroscopy was provided for guidance and anatomical localization. Please see the procedure report for further details. Dictated by: Keyshawn Torres M.D. on 10/27/2022 at 10:46 Approved by: Keyshawn Torres M.D. on 10/27/2022 at 10:46
[2022-10-27 08:04] VITALS: BP 106/68; PULSE 72; RESP 16; TEMP 36.5; O2SAT 98
[2022-10-27 08:12] VITALS: BP 108/56; PULSE 67; RESP 17; O2SAT 96
[2022-10-27 08:17] VITALS: BP 113/54; PULSE 64; RESP 21; O2SAT 96
[2022-10-27 08:22] VITALS: BP 109/56; PULSE 65; RESP 14; O2SAT 100
[2022-10-27] MEDS: BUPIVACAINE 0.5% (PF) 10 ML VIAL 5 ML INJ (08:22)
[2022-10-27] MEDS: IOPAMIDOL 15 ML VIAL 3 ML INJ (08:23)
[2022-10-27 08:26] VITALS: PULSE 64; RESP 20; O2SAT 94
--- NOTE | 2022-10-27 08:31 | P.PCN_ITS ---
Date/Time/Diagnoses Date of procedure: 10/27/22 Time of procedure: 08:00 Procedure Notes Physician: Louie Hauser Total Fluoroscopy time (seconds): 17 Total sedation minutes: 0 Procedure in detail & Post-procedure care: Bilateral L3, 4, 5 Lumbar Medial Branch Blocks Indications: Navdeep is presenting for treatment of lumbar spondylosis with low back pain. Preoperative diagnosis: Lumbar spondylosis Postoperative diagnosis: Same Pre-procedure History: Patient demonstrates today moderate to severe non- radicular back pain without neurologic deficit aggravated by hyperextension yes Back pain greater than leg pain? yes Patient today has tenderness over the suspected joint(s) yes History of post-traumatic injury? no Hypertrophic arthropathy yes Back pain associated with suspected motion segment instability, hypermobility or pseudoarthrosis no Pre-testing pain score (VAS): 7/10 Focused Examination: Ax3 Mood and affect are normal Vital Signs: VSS Consent: Following review of allergies and potential side effects/complications, including, but not necessarily limited to, infection, allergic reaction, local tissue breakdown, stroke, temporary or permanent nerve injury, paralysis, and possible , the patient indicated that they understood and agreed to proceed.? An informed consent document was signed by the patient, witnessed by a nurse and placed in the patient's chart.? Additionally, other treatment options including medications and physical therapy were reviewed with the patient. All questions were answered. Site was then marked. Anesthesia: Local Position: Prone Monitoring: NIBP, Pulse oximetry, 3 lead EKG Needle used: 25G 3.5 inch spinal needle Contrast: Isovue 300M Injectate: 0.5% bupivacaine 1 mL per site Procedure: The patient was brought into the procedure room and positioned into the prone position. Skin was prepped with a Chloraprep solution, allowed to air dry, and then draped in sterile fashion.? The right L4-5 and L5-S1 facet joints were visually identified with fluoroscopy. Lidocaine 1% was used to anesthetize the skin over each target destination with a 25ga needle. A 25 ga, 3.5 inch spinal needle was advanced to the location of the medial branch at the junction of the superior articular process and the transverse process at L3,4,5 using intermittent fluoroscopy in the AP view. Isovue 300M contrast 0.2ml was injected at each level outlining the medial borders for each level and the base of the SAP of the sacrum in the AP and lateral views. There was no evidence of vascular or intrathecal uptake. The above injectate was slowly injected at each target d estination. The left L4-5 and L5-S1 facet joints were visually identified with fluoroscopy. Lidocaine 1% was used to anesthetize the skin over each target destination with a 25ga needle. A 22 ga, 3.5 inch spinal needle was advanced to the location of the medial branch at the junction of the superior articular process and the transverse process at L3,4,5 using intermittent fluoroscopy in the AP view. Isovue 300M contrast 0.2ml was injected at each level outlining the medial borders for each level and the base of the SAP of the sacrum in the AP and lateral views. There was no evidence of vascular or intrathecal uptake. The above injectate was slowly injected at each target destination. At the end of the procedure the needles were withdrawn and Band-Aids were applied for a dressing. At the end of the procedure the needles were withdrawn and Band-Aids were applied for a dressing. Post Procedure: Patient was taken to the recovery and monitored. The patient was provided a Pain Log to continue to record the patient's response to the target- specific procedure prior to the patient's follow-up visit with the referring physician. Patient was stable upon discharge. Detailed post procedure instructions were provided. Patient was asked to call in the event of worsening pain, fever, weakness, numbness or bladder or bowel incontinence. Postoperatively, today patient demonstrates the following changes with hyperextension and with tenderness over the suspected joint(s). Provacative testing using the Lopez's facet loading test Right side Left side Directly before the block ?VAS (0-10) = 7/10 VAS (0-10) = 7/10 E 5 minutes after the block VAS (0-10) = 0/10 VAS (0-10) = 0/10 Percentage relief obtained with this diagnostic block 100% 100% Any improved physical functioning directly after the blocks? Range of motion Based on the medial branches blocked today, if the patient meets insurance criteria for radiofrequency, the treatment should result in the denervation of the bilateral L4-5 and L5-S1 facet joint nerves. We would expect to denervate a total of 4 facets during the radiofrequency ablation.
[2022-10-27 08:35] VITALS: BP 100/74; PULSE 72; RESP 16; O2SAT 99
== END 2022-10-27 08:34 | disposition home or self-care (01) ==
LOC: RAD 07:47
PROVIDERS: PCP Physician Assistant; Referring Provider Anesthesiology; Visit Provider Anesthesiology
DX: M47.816 Spondylosis without myelopathy or radiculopathy, lumbar region (principal)
CPT/HCPCS: 64493; 64494

== ENCOUNTER 2022-12-22 07:35 | Outpatient (CLI) | payer OTHER, SELFPAY ==
--- NOTE | 2022-12-22 07:37 | DI.RAD.S_ITS ---
PROCEDURE: PAIN L/S FACET INJ/BLK 1ST VIDAL COMPARISON: [facility], , PAIN L/S FACET INJ/BLK 1ST VIDAL, 10/27/2022, 8:14. INDICATIONS: SPONDYLOSIS FINDINGS: Fluoroscopic spot filming was performed to verify placement of spinal needles on both sides at the L3, L4, and L5 levels, as labeled on the films. Appropriate location of the needle tips was confirmed by injection of iodinated contrast. IMPRESSION: Intraprocedural examination demonstrating appropriate positions of the needles. Dictated by: Duane Reyes M.D. on 12/22/2022 at 12:17 Approved by: Duane Reyes M.D. on 12/22/2022 at 12:17
[2022-12-22 07:40] VITALS: BP 160/93; PULSE 65; RESP 18; TEMP 35.9; O2SAT 99
--- NOTE | 2022-12-22 08:00 | P.PCN_ITS ---
Date/Time/Diagnoses Date of procedure: 12/22/22 Time of procedure: 08:00 Procedure Notes Physician: Louie Hauser Total Fluoroscopy time (seconds): 20 Total sedation minutes: 0 Procedure in detail & Post-procedure care: Bilateral L3,4,5 Lumbar Medial Branch Blocks Indications: Navdeep is presenting for treatment of lumbar spondylosis with low back pain. Preoperative diagnosis: Bilateral lumbar spondylosis Postoperative diagnosis: Same Pre-procedure History: Patient demonstrates today moderate to severe non- radicular back pain without neurologic deficit aggravated by hyperextension yes Back pain greater than leg pain? yes Patient today has tenderness over the suspected joint(s) yes History of post-traumatic injury? no Hypertrophic arthropathy yes Back pain associated with suspected motion segment instability, hypermobility or pseudoarthrosis no Pre-testing pain score (VAS): 6/10 Focused Examination: Ax3 Mood and affect are normal Vital Signs: VSS Consent: Following review of allergies and potential side effects/complications, including, but not necessarily limited to, infection, allergic reaction, local tissue breakdown, stroke, temporary or permanent nerve injury, paralysis, and possible , the patient indicated that they understood and agreed to proceed.? An informed consent document was signed by the patient, witnessed by a nurse and placed in the patient's chart.? Additionally, other treatment options including medications and physical therapy were reviewed with the patient. All questions were answered. Site was then marked. Anesthesia: Local Position: Prone Monitoring: NIBP, Pulse oximetry, 3 lead EKG Needle used: 22 ga 3.5 inch spinal needle Contrast: Isovue 300M Injectate: 2% Lidocaine 1 mL per site Procedure: The patient was brought into the procedure room and positioned into the prone position. Skin was prepped with a Chloraprep solution, allowed to air dry, and then draped in sterile fashion.? The right L4-5 and L5-S1 facet joints were visually identified with fluoroscopy. Lidocaine 1% was used to anesthetize the skin over each target destination with a 25ga needle. A 22 ga, 3.5 inch spinal needle was advanced to the location of the medial branch at the junction of the superior articular process and the transverse process at L4,5 and the base of the SAP of the sacrum using intermittent fluoroscopy in the AP view. Isovue 300M contrast 0.2ml was injected at each level outlining the medial borders for each level and the base of the SAP of the sacrum in the AP and lateral views. There was no evidence of vascular or intrathecal uptake. The above injectate was slowly injected at each target destination. The left L4-5 and L5-S1 facet joints were visually identified with fluoroscopy. Lidocaine 1% was used to anesthetize the skin over each target destination with a 25ga needle. A 22 ga, 3.5 inch spinal needle was advanced to the location of the medial branch at the junction of the superior articular process and the transverse process at L4,5 and the base of the SAP of the sacrum using intermittent fluoroscopy in the AP view. Isovue 300M contrast 0.2ml was injected at each level outlining the medial borders for each level and the base of the SAP of the sacrum in the AP and lateral views. There was no evidence of vascular or intrathecal uptake. The above injectate was slowly injected at each target destination. At the end of the procedure the needles were withdrawn and Band- Aids were applied for a dressing. At the end of the procedure the needles were withdrawn and Band-Aids were applied for a dressing. Post Procedure: Patient was taken to the recovery and monitored. The patient was provided a Pain Log to continue to record the patient's response to the target- specific procedure prior to the patient's follow-up visit with the referring physician. Patient was stable upon discharge. Detailed post procedure instructions were provided. Patient was asked to call in the event of worsening pain, fever, weakness, numbness or bladder or bowel incontinence. Postoperatively, today patient demonstrates the following changes with hyperextension and with tenderness over the suspected joint(s). Provacative testing using the Lopez's facet loading test Right side Left side Directly before the block ?VAS (0-10) = 6/10 VAS (0-10) = 6/10 5 minutes after the block VAS (0-10) = 2/10 VAS (0-10) = 2/10 Percentage relief obtained with this diagnostic block 66% 66% Any improved physical functioning directly after the blocks? ROM Based on the medial branches blocked today, if the patient meets insurance criteria for radiofrequency, the treatment should result in the denervation of the bilateral L4-5 and L5-S1 facet joint nerves. We would expect to denervate a total of 4 facets during the radiofrequency ablation.
[2022-12-22 08:10] VITALS: BP 133/84; PULSE 58; RESP 23; O2SAT 96
[2022-12-22] MEDS: IOPAMIDOL 15 ML VIAL 3 ML INJ (08:11)
[2022-12-22] MEDS: LIDOCAINE 2% INJ MDV 20ML 20 ML INJ (08:13)
[2022-12-22 08:15] VITALS: BP 152/66; PULSE 58; RESP 23; O2SAT 98
[2022-12-22 08:20] VITALS: BP 141/73; PULSE 57; RESP 18; O2SAT 98
[2022-12-22 08:25] VITALS: BP 140/90; PULSE 67; RESP 18; O2SAT 99
[2022-12-22 08:30] VITALS: BP 144/96; PULSE 63; RESP 18; O2SAT 97
== END 2022-12-22 08:35 | disposition home or self-care (01) ==
PROVIDERS: PCP Physician Assistant; Referring Provider Anesthesiology; Visit Provider Anesthesiology
DX: M47.816 Spondylosis without myelopathy or radiculopathy, lumbar region (principal)
CPT/HCPCS: 64493; 64494

== ENCOUNTER 2023-01-19 07:34 | Outpatient (CLI) | payer OTHER, SELFPAY ==
[2023-01-19] VITALS (16 sets, daily range): BP systolic 114–141; BP diastolic 70–86; PULSE 63–79; RESP 14–20; TEMP 37.2; O2SAT 92–98
--- NOTE | 2023-01-19 07:35 | DI.RAD.S_ITS ---
PROCEDURE: PAIN L/S MED/LAT N RFA BILAT INDICATIONS: SPONDYLOSIS COMPARISON: [facility], XA, PAIN L/S FACET INJ/BLK 1ST VIDAL, 12/22/2022, 8:09. FINDINGS: Fluoroscopic spot filming was performed to verify placement of spinal needles on both sides at the L3, L4 and L5 nerve root levels. IMPRESSION: Images during rhizotomy within normal limits. Dictated by: Duane Reyes M.D. on 01/19/2023 at 19:29 Approved by: Duane Reyes M.D. on 01/19/2023 at 19:30
[2023-01-19] MEDS: MIDAZOLAM 2 MG/2 ML VIAL 1 MG IV ×2 (08:01→08:07)
[2023-01-19] MEDS: BUPIVACAINE 0.5% (PF) 10 ML VIAL 5 ML INJ (08:05)
[2023-01-19] MEDS: LIDOCAINE 2% INJ MDV 20ML 5 ML INJ (08:05)
[2023-01-19] MEDS: DEXAMETHASONE 10 MG/ML VIAL INJ (08:06)
--- NOTE | 2023-01-19 08:09 | PC.NURSE ---
Pain procedure/tylenol Upon checking patient in for procedure this am, patient stated that he took 3000 units of Tylenol, when questioned further patient stated that he took [address] Hauser made aware and procedure will go ahead. Patient counseled on Tylenol dosing. Dr. Hauser instructed patient that he should have only taken 1000mg of Tylenol. Patient verbalized understanding and patient verbalized that he would not take further Tylenol today. Patient's Lizette made aware of the Tylenol and she is also aware that patient should not have any more Tylenol today.
--- NOTE | 2023-01-19 15:30 | P.PCN_ITS ---
Date/Time/Diagnoses Date of procedure: 01/19/23 Time of procedure: 08:00 Procedure Notes Physician: Louie Hauser Total Fluoroscopy time (seconds): 43 Total sedation minutes: 45 Procedure in detail & Post-procedure care: Bilateral L3, 4, 5 Lumbar Medial Branch Radio Frequency Ablation Indications: Navdeep presents for treatment of lumbar spondylosis with low back pain. Preoperative diagnosis: Lumbar spondylosis Postoperative diagnosis: Same Focused Examination: Ax3 Mood and affect are normal Vital Signs: VSS ASA: 2 Consent: Following review of allergies and potential side effects/complications, including, but not necessarily limited to, infection, allergic reaction, local tissue breakdown, stroke, temporary or permanent nerve injury, paralysis, and possible , the patient indicated that they understood and agreed to proceed.? An informed consent document was signed by the patient, witnessed by a nurse and placed in the patient's chart.? Additionally, other treatment options including medications and physical therapy were reviewed with the patient. All questions were answered. Site was then marked. Position: Prone Monitoring: NIBP, Pulse oximetry, 3 lead EKG Needle used: 18 guage, 150 mm, 10 mm active tip Anesthesia: Local, oral and IV sedation. After review of previous anesthetic history and IV conscious sedation, the patient was deemed safe to proceed with today's procedure with IV conscious sedation. IV sedation was accomplished with midazolam 2 mg administered by the RN after order by Dr. Hauser. Sedation was titrated to patient comfort during the course of the procedure. Patient remained responsive to all verbal commands. Procedure: The patient was brought into the procedure room and positioned into the prone position. Skin was prepped with a Chloraprep solution, allowed to air dry, and then draped in sterile fashion.? The right L4-5 and L5-S1 facet joints were visually identified with fluoroscopy. Lidocaine 1% was used to anesthetize the skin over each target destination with a 25ga needle. An 18 ga, 150 mm RFA needle with a 10 mm active tip was advanced to the location of the medial branch at the junction of the superior articular process and the transverse process at right L4,5 and the base of the SAP of the sacrum using intermittent fluoroscopy in the oblique view with caudal tilt. AP and lateral radiographs were taken to confirm proper needle placement. No paresthesias were noted. The stylet was removed and the radiofrequency probe was inserted through the cannula. Each level was individually tested.? Motor stimulation up to 2V elicited multifidus twitching in the lumbar spine. There was no motor stimulation in the lower extremities. After negative aspiration, 1ml of 2% lidocaine was injected at each of the levels and radiofrequency denervation carried out using 80 degrees Celsius for 90 seconds. The needles were then rotated 90 degrees and a second ablation was performed at 80 degrees Celsius for 90 seconds. Next, the left L4-5 and L5-S1 facet joints were visually identified with fluoroscopy. Lidocaine 1% was used to anesthetize the skin over each target destination with a 25ga needle. An 18 ga, 100 mm RFA needle with a 10 mm active tip was advanced to the location of the medial branch at the junction of the superior articular process and the transverse process at left L4,5 and the base of the SAP of the sacrum using intermittent fluoroscopy in the oblique view with caudal tilt. AP and lateral radiographs were taken to confirm proper needle placement. No paresthesias were noted. The stylet was removed and the radiofrequency probe was inserted through the cannula. Each level was individually tested. Motor stimulation up to 2V elicited multifidus twitching in the lumbar spine. There was no motor stimulation in the lower extremities. After negative aspiration, 1ml of 2% lidocaine was injected at each of the levels and radiofrequency denervation carried out using 80 degrees Celsius for 90 seconds. The needles were then rotated 90 degrees and a second ablation was performed at 80 degrees Celsius for 90 seconds. After ablation, a mixture of 10 mg dexamethasone with 0.5% bupivacaine 5 mL was injected in equal amounts among the sites (1 mL per site). At the end of the procedure the needles were withdrawn and Band-Aids were applied for a dressing. This procedure is expected to denervate the bilateral L4-5 and L5-S1 facet joints. Post Procedure: Patient was taken to the recovery and monitored. The patient was provided a Pain Log to continue to record the patient's response to the target- specific procedure prior to the patient's follow-up visit with the referring physician. Patient was stable upon discharge. Detailed post procedure instructions were provided. Patient was asked to call in the event of worsening pain, fever, weakness, numbness or bladder or bowel incontinence. Complications: None
== END 2023-01-19 09:10 | disposition home or self-care (01) ==
PROVIDERS: PCP Physician Assistant; Referring Provider Anesthesiology; Visit Provider Anesthesiology
DX: M47.816 Spondylosis without myelopathy or radiculopathy, lumbar region (principal)
CPT/HCPCS: 64635; 64636; 99152; 99153; J1100; J2250

== ENCOUNTER → 2024-02-29 07:50 | Outpatient (CLI) | payer OTHER, SELFPAY | PROVIDERS: Family Provider Physician Assistant; PCP Physician Assistant; Referring Provider Physical Medicine & Rehabilitation; Visit Provider Physical Medicine & Rehabilitation | DX: Z98.1 Arthrodesis status (principal); M54.16 Radiculopathy, lumbar region | CPT/HCPCS: 95886; 95911 ==

== ENCOUNTER → 2024-03-08 07:40 | Outpatient (CLI) | payer OTHER, SELFPAY | PROVIDERS: Family Provider Physician Assistant; PCP Physician Assistant; Referring Provider Physical Medicine & Rehabilitation; Visit Provider Physical Medicine & Rehabilitation | DX: Z98.1 Arthrodesis status (principal); M54.16 Radiculopathy, lumbar region | CPT/HCPCS: 95886; 95912 ==

== ENCOUNTER 2024-03-21 08:15 | Emergency (ER) | payer OTHER, SELFPAY ==
[2024-03-21] VITALS (7 sets, daily range): BP systolic 144–152; BP diastolic 84–94; PULSE 60–74; RESP 16–19; TEMP 36.7; O2SAT 94–98; BMI 37.1
--- NOTE | 2024-03-21 09:09 | ED_ITS ---
HPI - Back Pain/Injury General Chief Complaint: Back Pain/Injury Stated Complaint: fall, diff sleeping/sitting, intense back pain Time Seen by Provider: 03/21/24 08:50 Source: patient History of Present Illness HPI Narrative: Patient drove himself here. Has a long history of cervical lumbar chronic pain. Patient states his pain management provider, Dr. Mendenhall has discontinued services because he is being referred on to ortho spine for higher level of care. Patient states he was working in the [employer] 2 mornings ago and lost his balance cutting brushes and landed on his right sacral air. Pain radiates down his right leg to the foot. No weakness. Patient denies any bowel or bladder incontinence or retention. No saddle paresthesia. Related Data Home Medications Medication Instructions Recorded Confirmed celecoxib 200 mg capsule 200 mg PO DAILY 10/09/20 03/12/24 cyclobenzaprine 10 mg tablet 10 mg PO BEDTIME PRN Muscle Spasm 10/09/20 03/12/24 amlodipine 10 mg tablet 10 mg PO DAILY 08/25/22 03/12/24 atorvastatin 40 mg tablet 40 mg PO DAILY 08/25/22 03/12/24 levothyroxine 75 mcg tablet 75 mcg PO DAILY 08/25/22 03/12/24 losartan 100 1 tab PO DAILY 08/25/22 03/12/24 mg-hydrochlorothiazide 25 mg tablet acamprosate 333 mg tablet,delayed 666 mg PO 3XD 03/08/23 03/12/24 release bupropion HCl 300 mg 24 hr tablet, 300 mg PO DAILY 02/06/24 03/12/24 extended release semaglutide 0.25 mg or 0.5 mg (2 0.5 mg SUBCUT QWEEK 02/06/24 03/12/24 mg/3 mL) subcutaneous pen injector (Ozempic) tadalafil 5 mg tablet 5 mg PO DAILY 02/06/24 03/12/24 tadalafil 20 mg tablet 10 - 20 mg PO DAILY PRN intercourse 03/12/24 03/12/24 Previous Rx's Medication Instructions Recorded oxycodone 5 mg capsule 5 mg PO ONCE pain #1 cap 12/28/22 gabapentin 600 mg tablet 1,200 mg (2 x 600 mg) PO TID PRN 02/06/24 pain (scale score 7-10) #90 tabs oxycodone-acetaminophen 5 mg-325 1 tab PO Q4-6H PRN pain #20 tabs 03/21/24 mg tablet (Percocet) Allergies Allergy/AdvReac Type Severity Reaction Status Date / Time No Known Drug Allergies Allergy Verified 03/12/24 13:01 Review of Systems Review of Systems Narrative: GENERAL: Negative chills, fatigue, malaise, fever, sweats. HEENT: Negative sinus pain, ear pain, sore throat RESPIRATORY: Negative dyspnea, cough CARDIOVASCULAR: Negative chest pain, palpitations GASTROINTESTINAL: Negative nausea, vomiting, abdominal pain : Negative dysuria, frequency, hematuria MUSCULOSKELETAL: Positive muscle or bony pain SKIN: Negative rash, skin lesions NEUROLOGIC: Negative weakness, numbness ROS Unobtainable: All systems reviewed & are unremarkable except as noted in HPI and below Patient History Medical History Morbid obesity due to excess calories Tobacco abuse Myofascial pain Hip pain Thoracic back pain Low back pain Lumbar spondylosis Lumbar radiculopathy Hypothyroidism HTN (hypertension) Sleep apnea Surgical History Hx of fusion of cervical spine History of back surgery Hx of gastric bypass Hx of knee surgery Social History marital status: unknown household members: significant other occupational status: previously employed Smoking Status: Never smoker alcohol intake: former substance use type: does not use Smoking Status: Never smoker Substance Use Type: does not use Exam Narrative Exam Narrative: GENERAL: in no distress, not toxic not dyspneic HEAD: Normocephalic. EYES: Pupils equal round ENT: Mucous membranes moist. NECK: Trachea midline. CARDIOVASCULAR: Regular rate and rhythm RESPIRATORY: Clear to auscultation. Breath sounds equal bilaterally. No wheezes, rales, or rhonchi. GASTROINTESTINAL: Abdomen soft, non-tender EXTREMITIES: No gross deformities. BACK: No flank tenderness. There is reproducible right lower paralumbar muscle and sacral tenderness. No bruising. No abrasion. No pain with right straight leg raise. Light touch intact to leg. Strong right hip knee ankle flexion and extension. NEURO: AOx4. Clear speech SKIN: Warm and dry PSYCH: Not anxious, is cooperative Initial Vital Signs Initial Vital Signs: Vital Signs Temperature 98.1 F 03/21/24 08:28 Pulse Rate 74 03/21/24 08:28 Respiratory Rate 19 03/21/24 08:28 Blood Pressure 152/86 H 03/21/24 08:28 Pulse Oximetry 97 03/21/24 08:28 Oxygen Delivery Method Room Air 03/21/24 08:28 Course Orders Ordered: Discontinued Medications Ketorolac Tromethamine (Ketorolac 30 Mg/Ml Vial) 30 mg IM NOW ONE Stop: 03/21/24 09:09 Last Admin: 03/21/24 09:31 Dose: 30 mg Documented By: FABIÁN Vital Signs Vital signs: Vital Signs - 8 hr 03/21/24 08:28 Temperature 98.1 F Pulse Rate 74 Respiratory Rate 19 Blood Pressure 152/86 H Pulse Oximetry 97 Oxygen Delivery Method Room Air MDM - Back Pain/Injury Imaging Data CT lumbar spine: Radiologist's Impression: [address] [address] [address] Scan Report Signed Patient: Alejo Cai MR#: [id number] : 1960 Acct:[id number] Age/Sex: 63 / M Date of Service: 03/21/24 Loc: ED Accession Number: [id number] Procedure: CT lumbar spine wo con Ordering Provider: Brian Romero MD PROCEDURE: CT LUMBAR SPINE WO CON INDICATIONS: Fall/pain/right side TECHNIQUE: Noncontrast 3 mm thick sections acquired from the T12 level to the sacrum. Sagittal and coronal reformats were constructed. For radiation dose reduction, the following was used: automated exposure control. COMPARISON: None. FINDINGS: Image quality: Excellent. Bones: There is normal bony alignment. No acute vertebral body compression fractures. No suspicious lytic or blastic bony lesions. No pars defects. Moderate to severe disc height loss at L5-S1. Mild facet arthrosis at L5-S1, L4-5, L3-4. Moderate spinal canal narrowing at L4-5 due to facet arthrosis and broad-based disc bulge. Soft tissues: No retroperitoneal masses or hematomas. Visualized aorta is normal in caliber. IMPRESSION: No acute, displaced fracture or traumatic subluxation. Moderate to severe spinal canal narrowing at L4-5 due to degenerative change. Lower lumbar facet arthrosis. Dictated by: Dandre Hester M.D. on 03/21/2024 at 9:58 Approved by: Dandre Hester M.D. on 03/21/2024 at 10:00 [facility] Narrative Medical decision making narrative: daniel drove himself here. Has a long history of cervical lumbar chronic pain. Patient states his pain management provider, Dr. Mendenhall has discontinued services because he is being referred on to ortho spine for higher level of care. Patient states he was working in the [employer] 2 mornings ago and lost his balance cutting brushes and landed on his right sacral air. Pain radiates down his right leg to the foot. No weakness. Patient denies any bowel or bladder incontinence or retention. No saddle paresthesia. After history and exam, exam is reassuring. No blood work indicated. CT lumbar spine Toradol ordered. [facility] Medical records reviewed: No recent visit for this complaint Differential considered: Includes but not limited to lumbar fracture sacral fracture bulge disc sciatica lumbar contusion Lab Test results independently reviewed as above. Pertinent findings: None indicated Imaging studies independently reviewed: CT lumbar spine no acute finding Consultations: None indicated Treatments: Toradol Re-evaluations: 10:23 a.m.. Updated patient results. Pain not resolved but slight improvement. He is driving. He has had hydrocodone and oxycodone in the past. It has been 5 years. Does not feel he will be addicted to it. Short course of breakthrough pain medication is appropriate, he desires this. He is between pain management providers. Return precautions reviewed. He desires discharge home. Discussion: Appropriate discharge home. Exam is reassuring. No significant neuro deficits. No MRI indicated at this time. Return precautions reviewed. He desires discharge home. Diagnosis: Lumbar contusion/lumbar radiculopathy Discharge Plan Departure Patient Disposition: Home Clinical Impression: Lumbar radiculopathy Lumbar contusion Qualifiers: Encounter type: initial encounter Qualified Code(s): S30.0XXA - Contusion of lower back and pelvis, initial encounter Instructions: DI for Contusion, DI for Back Pain With Sciatica Activity Restrictions/Additional Instructions: No driving operating machinery when taking prescribed pain medication. Your exam and CT scan imaging studies are reassuring today. Please see your family doctor or new quality measurement specialist for re-evaluation. Please try to see your family doctor this week for re-evaluation. Short course of pain medication has been printed for you. Return if worse if any questions or concerns Prescriptions: New oxycodone-acetaminophen [Percocet] 5-325 mg tablet 1 tab PO Q4-6H PRN (Reason: pain) Qty: 20 0RF No Action cyclobenzaprine 10 mg tablet 10 mg PO BEDTIME PRN (Reason: Muscle Spasm) celecoxib 200 mg capsule 200 mg PO DAILY losartan-hydrochlorothiazide 100-25 mg tablet 1 tab PO DAILY Patient Comments: Take 1 tablet by mouth daily. amlodipine 10 mg tablet 10 mg PO DAILY Patient Comments: TAKE ONE TABLET BY MOUTH ONE TIME DAILY levothyroxine 75 mcg tablet 75 mcg PO DAILY atorvastatin 40 mg tablet 40 mg PO DAILY oxycodone 5 mg capsule 5 mg PO ONCE Qty: 1 0RF Rx Instructions: Take 1 hour prior to procedure acamprosate 333 mg tablet,delayed release (DR/EC) 666 mg PO 3XD Ozempic 0.25 mg or 0.5 mg (2 mg/3 mL) pen injector 0.5 mg SUBCUT QWEEK Patient Comments: [NO ORIGINAL SIG] tadalafil 5 mg tablet 5 mg PO DAILY bupropion HCl 300 mg tablet extended release 24 hr 300 mg PO DAILY gabapentin 600 mg tablet 1,200 mg PO TID PRN (Reason: pain (scale score 7-10)) Qty: 90 2RF tadalafil 20 mg tablet 10 - 20 mg PO DAILY PRN (Reason: intercourse) Referrals: Monie Jarrett PA-C [Primary Care Provider] - Stand Alone Forms: Patient Portal/API/Survey
[2024-03-21] MEDS: KETOROLAC 30 MG/ML VIAL IM (09:31)
--- NOTE | 2024-03-21 10:45 | PC.NURSE ---
Addendum entered by Ivana Diaz R.N. 03/21/24 10:45: Pt able to ambulate with cane. Original Note: Pt reports on Tuesday he had a mechanical fall. Pt reports since then he has been having acute on chronic back pain. Pt reports his right hip/low back pain radiates down his right leg. Pt reports taking advil, Tylenol, and gabapentin w/ no relief. Pt reports heat has helped a little with his pain. Pt benny having impact to his head on his fall. - LOC - blood thinner. Pt denies loss of bladder or bowel. Pt states he has a referral to a back surgeon to remove bone spurs. Pt reports he recently had an EMG of upper and lower back.
== END 2024-03-21 10:47 | disposition home or self-care (01) ==
PROVIDERS: Emergency Provider Emergency Medicine; Family Provider Physician Assistant; PCP Physician Assistant
DX: S30.0XXA Contusion of lower back and pelvis, initial encounter (principal); M54.16 Radiculopathy, lumbar region; W18.30XA Fall on same level, unspecified, initial encounter
CPT/HCPCS: 72131; 96372; 99283; 99284; J1885

== ENCOUNTER → 2024-03-27 15:52 | Outpatient (CLI) | payer OTHER, SELFPAY ==
--- NOTE | 2024-03-27 15:53 | DI.MRI.S_ITS ---
PROCEDURE: MR LUMBAR SPINE WO CON INDICATIONS: LUMBAR RADICULOPATHY TECHNIQUE: Noncontrast sagittal T1 spin echo and T2 fast echo, sagittal STIR, and T2 fast spin echo through the lumbar spine. In cases with scoliosis, additional coronal T2 fast spin echo may be performed. COMPARISON: [facility], MR, MR LUMBAR SPINE WO CON, 02/08/2022, 7:26. [facility], CT, CT LUMBAR SPINE WO CON, 03/21/2024, 9:39. FINDINGS: Image quality: This examination is limited by involuntary motion artifact. Alignment and Curvature: There is minimal retrolisthesis seen at L5-S1. Bone Marrow: Marrow is of normal overall signal. Scattered foci are seen, which are hyperintense on T1-weighted and T2-weighted imaging, which are most consistent with benign vertebral body hemangiomas. No acute vertebral body compression fractures. Spinal Cord: Conus medullaris terminates at the T12-L1 level. Visualized cord demonstrates normal signal and size. Paraspinous Soft Tissues: No paravertebral masses. T12-L1: Mild loss of disc height is seen. Loss of disc signal is seen. Mild to moderate disc bulge is seen, which is eccentric to the left. There is a left foraminal disc protrusion, as on series 5, image 5. Mild facet joint hypertrophy is seen. There is moderate to severe left-sided neural foraminal narrowing, with a degree of compression upon the exiting left T12 nerve root. No right-sided neural foraminal narrowing is seen. Minimal central canal narrowing is seen. These imaging findings have progressed compared to the prior study. L1-L2: The disc height is well-preserved. Loss of disc signal is seen at this level. Mild loss of disc height is seen. Loss of disc signal is seen. Mild facet joint hypertrophy is seen. There is moderate left-sided and no significant right-sided neural foraminal narrowing. Minimal central canal narrowing is seen. There is slight progression compared to 2021. L2-L3: [id number] loss of disc height and disc signal can be seen. Moderate generalized disc bulge is seen. There is a superimposed central disc protrusion. Mild to moderate facet hypertrophy is seen. Moderate bilateral neural foraminal narrowing is seen. Mild to moderate central canal narrowing is seen. These imaging findings have progressed compared to the prior study. L3-L4: The disc height is well-preserved. Loss of disc signal is seen at this level. Moderate generalized disc bulge is seen. There is a superimposed central disc protrusion. Moderate facet joint hypertrophy is seen. Moderate bilateral neural foraminal narrowing is seen. Moderate central canal narrowing is seen. L4-L5: The disc height is well-preserved. Loss of disc signal is seen at this level. Moderate generalized disc bulge is seen. There is a superimposed central disc protrusion. There is a focal annular fissure seen posteriorly. At least moderate facet hypertrophy is seen. Associated hypertrophy of the ligamentum flavum can be seen. Fluid is seen within the facet joints themselves. There is moderate to severe bilateral neural foraminal narrowing seen, with an associated degree of compression seen upon the exiting nerve roots. At least moderate central canal narrowing is seen at this level. These degenerative changes are worse than in 2022. L5-S1: At least moderate loss of disc height and disc signal can be seen. Mac row Modic 2 moderate disc bulge is seen, which is eccentric to the left. Mild to moderate facet hypertrophy is seen. There is at least moderate right-sided and moderate left-sided neural foraminal narrowing. Mild central canal narrowing is seen. When comparison is made with the prior images, these findings are similar. IMPRESSION: Multiple levels of significant lumbar spine degenerative change can be seen, which are progressed at several levels compared to 2022. Dictated by: Duane Reyes M.D. on 03/28/2024 at 10:18 Approved by: Duane Reyes M.D. on 03/28/2024 at 10:23
== END ==
LOC: MRI 15:52
PROVIDERS: Family Provider Physician Assistant; PCP Physician Assistant; Referring Provider Physician Assistant; Visit Provider Physician Assistant
DX: M47.26 Other spondylosis with radiculopathy, lumbar region (principal); M47.27 Other spondylosis with radiculopathy, lumbosacral region; M48.062 Spinal stenosis, lumbar region with neurogenic claudication
CPT/HCPCS: 72148

== ENCOUNTER → 2024-04-02 08:48 | Outpatient (CLI) | payer OTHER, SELFPAY ==
--- NOTE | 2024-04-02 08:50 | DI.MRI.S_ITS ---
PROCEDURE: MR CERVICAL SPINE WO CON INDICATIONS: cervical radiculopathy TECHNIQUE: Noncontrast sagittal T1 spin echo and T2 fast spin echo, sagittal STIR, foraminal oblique sagittal T2 fast spin echo, and axial gradient echo or T2 fast spin echo through the cervical spine. COMPARISON: [facility], MR CERVICAL SPINE WO CON, 09/09/2015, 11:12. FINDINGS: Image quality: Excellent Anterior fusion instrumentation at C7-T1. Mild retrolisthesis C2 on C3. Mild anterolisthesis C3 on C4 and C4 on C5. Vertebral body heights cervical spine are well maintained. Multilevel disc desiccation disc bulge. Marrow signal of the cervical spine is normal for age. Cord signal: There is a 7 x 10 mm (anterior to posterior by craniocaudal dimension) T2 hyperintense lesion in the left aspect of medulla/cervical cord junction, incompletely evaluated. Right neural foraminal stenosis: Moderate at C2-3, C3-4, mild at C4-5, moderate at C7-T1 and T1-T2. Left neural foraminal stenosis: Mild at C2-3, moderate at C3-4, and C4-5, moderate at C5-6, severe at C6-7, C7-T1, and T1-T2. Axial images: C2-3: Moderate bilateral facet arthropathy. No central canal stenosis. C3-4: Mild right, severe left facet arthropathy. Mild central canal stenosis. C4-5: Moderate bilateral facet arthropathy. No central canal stenosis. C5-6: Posterior disc osteophyte complex. Bilateral uncovertebral arthropathy. Mild bilateral facet arthropathy. Mild central canal stenosis. C6-7: Bilateral uncovertebral arthropathy. No central canal stenosis. C7-T1: No central canal stenosis. T1-2: Mild left uncovertebral arthropathy. Mild right, moderate left facet arthropathy. Mild central canal stenosis. Moderate bilateral facet arthropathy. Posterior disc uncovering. Mild central canal stenosis. Other soft tissue findings: Small right mastoid effusion. IMPRESSION: 1. 7 mm T2 hyperintense lesion in the left aspect of the medulla/cervical cord junction, appearing more conspicuous in comparison to prior exam incompletely evaluated. Recommend further evaluation with MR brain with intravenous contrast. 2. Anterior fusion instrumentation at C7-T1 Multilevel degenerative changes of the cervical spine, most pronounced at C7 to T1 and T1-T2, where there is moderate right and severe left neural foraminal stenosis, overall, slightly progressed from prior exam. 3. Multilevel mild central canal stenosis of the cervical spine. Dictated by: Mague Alcala M.D. on 04/02/2024 at 11:28 Approved by: Mague Alcala M.D. on 04/02/2024 at 11:47
== END ==
PROVIDERS: Family Provider Physician Assistant; PCP Physician Assistant; Referring Provider Physical Medicine & Rehabilitation; Visit Provider Physical Medicine & Rehabilitation
DX: M47.22 Other spondylosis with radiculopathy, cervical region (principal); M48.02 Spinal stenosis, cervical region; M48.8X4 Other specified spondylopathies, thoracic region; Z98.1 Arthrodesis status
CPT/HCPCS: 72141

== ENCOUNTER 2024-08-02 08:39 | Outpatient (CLI) | payer MEDICARE, SELFPAY ==
[2024-08-02] VITALS (9 sets, daily range): BP systolic 115–145; BP diastolic 61–90; PULSE 59–67; RESP 14–18; TEMP 36.8; O2SAT 95–100
[2024-08-02] MEDS: MIDAZOLAM 2 MG/2 ML VIAL IV (10:05)
[2024-08-02] MEDS: MIDAZOLAM 2 MG/2 ML VIAL 1 MG IV (10:11)
[2024-08-02] MEDS: BUPIVACAINE 0.25% (PF) VIAL 2 ML INJ (10:14)
[2024-08-02] MEDS: DEXAMETHASONE 10 MG/ML VIAL 30 MG INJ (10:15)
[2024-08-02] MEDS: iopamidoL 15 ML VIAL 3 ML INJ (10:16)
--- NOTE | 2024-08-02 10:26 | P.PCN_ITS ---
Date/Time/Diagnoses Date of procedure: 08/02/24 Time of procedure: 10:26 Pre-procedure diagnosis: 1. CERVICAL STENOSIS, 2. CERVICAL HNP WITH UPPER EXTREMITY RADICULAR FEATURES Post-procedure diagnosis: same Procedure Notes Procedure: 1. FLUORSCOPICALLY GUIDED CONTRAST CONTROLLED INTERLAMINAR EPIDURAL STEROID INJECTION - C6/7 TL STEFANY Indications: Alejo is referred by GEORGE Jarrett for treatment of Cervical HNP with Upper Extremity Paresthesias. Physician: Naeem Mendenhall Total Fluoroscopy time (seconds): 48 Total sedation minutes: 17 Complications: none Procedure in detail & Post-procedure care: FINDINGS Cervical Stenosis due to disc deterioration and nerve root irritation and nerve root irritation DESCRIPTION OF PROCEDURE Fluoroscopically guided, contrast-controlled C6/7 translaminar epidural steroid injection with conscious sedation. Following review of allergy and review of potential side effects and complications, including, but not necessarily limited to, infection, allergic reaction, local tissue breakdown, temporary as well as permanent nerve injury, stroke, paralysis, and possible , the patient indicated that patient understood and agreed to proceed. An informed consent document was signed by the patient, witnessed by a nurse, and placed in the patient's chart. Additionally, other treatment options including modalities, medications, and physical therapy were reviewed with the patient. After review of previous anaesthesic history and IV conscious sedation the patient was deemed safe to proceed with today?s procedure with IV conscious smitha tion as ASA class II designation. Safety time-out was performed to confirm patient ID, procedure to be performed and site of procedure. IV sedation was accomplished with a combination of 3mg of Versed administered by the RN after DO order, titrated to patient comfort during the course of the procedure while the patient remained responsive to all verbal commands. In the prone position, following sterile prep and drape of the cervical region, the C6/7 translaminar space was identified fluoroscopically. The skin was anesthetized via a 25-gauge 1.5-inch needle with 1% lidocaine solution. At this point, a 25-gauge, 2.5-inch short bevel spinal needle was atraumatically introduced and advanced under fluoroscopic guidance into epidural space at the C6/7 translaminar space. Depth was confirmed on lateral view. Radiological data, including multiple fluoroscopic views of the cervical spine, reveal a spinal needle at the C6/7 translaminar space. Lateral views then show placement of the needle in the epidural space. Subsequent views show contrast material flowing superiorly and inferiorly in the epidural space. DSA fluoroscopy with live contrast injection, once again, confirmed no vascular or intrathecal uptake. At this point, using loss of resistance technique with saline and air, the epidural space was entered. Following negative aspiration, injection of approximately 1.5 cc of [id number]-200 with live fluoroscopy in the AP view confirmed epidural flow in the epidural space without vascular or intrathecal uptake observed. Subsequently, a test dose of 1 cc of 1% lidocaine solution was injected and patient was observed for two minutes without signs or symptoms of complications, including abdominal pain, shortness of breath, bilateral upper or lower extremity weakness, nausea and vomiting, prior to steroid injection. At this point, 3cc or 30mg of dexamethasone was then injected without incident. The patient tolerated the procedure well without signs or symptoms of com plications prior to being transferred to the recovery area for further monitoring, The patient was then transferred to the recovery area where they were observed for an appropriate period of time after the injection. The patient reported a VAS score of 6 prior to the procedure and a post-procedure VAS of 0. POST OP INSTRUCTIONS The patient was provided a Pain Log to continue to record their response to the target-specific procedure prior to follow-up visit with the referring provider. Additionally, specific post-injection care instructions and a contact number to our office were provided if concerns arise regarding possible complications associated with the procedure are suspected.
== END 2024-08-02 11:20 | disposition home or self-care (01) ==
LOC: RAD 08:40
PROVIDERS: Family Provider Physician Assistant; PCP Physician Assistant; Referring Provider Physical Medicine & Rehabilitation; Visit Provider Physical Medicine & Rehabilitation
DX: M48.02 Spinal stenosis, cervical region (principal); M50.123 Cervical disc disorder at C6-C7 level with radiculopathy
CPT/HCPCS: 62321; 99152; J1100; J2250; J3490

== ENCOUNTER 2024-08-20 07:35 | Day surgery (SDC) | payer MEDICARE, SELFPAY ==
--- NOTE | 2024-08-20 08:32 | P.HP_ITS ---
History of Present Illness History of Present Illness Date Patient Seen: 08/20/24 Chief complaint: SDC Narrative: Follow-up screening colonoscopy. Last performed 15 years ago [facility] Medical History Cervical radiculopathy at C8 Hip pain HTN (hypertension) Hypothyroidism Low back pain Lumbar radiculopathy Lumbar spondylosis Morbid obesity due to excess calories Myofascial pain Sleep apnea Thoracic back pain Tobacco abuse Surgical History History of back surgery Hx of fusion of cervical spine Hx of gastric bypass Hx of knee surgery Social History marital status: unknown household members: significant other occupational status: previously employed Smoking Status: Former smoker alcohol intake: former substance use type: does not use Meds Home Medications and Allergies Home Medications Medication Instructions Recorded Confirmed Type celecoxib 200 mg capsule 200 mg PO DAILY 10/09/20 08/20/24 History cyclobenzaprine 10 mg tablet 10 mg PO BEDTIME PRN Muscle Spasm 10/09/20 08/20/24 History amlodipine 10 mg tablet 10 mg PO DAILY 08/25/22 08/20/24 History atorvastatin 40 mg tablet 40 mg PO DAILY 08/25/22 08/20/24 History levothyroxine 75 mcg tablet 75 mcg PO DAILY 08/25/22 08/20/24 History losartan 100 1 tab PO DAILY 08/25/22 08/20/24 History mg-hydrochlorothiazide 25 mg tablet semaglutide 0.25 mg or 0.5 mg (2 0.5 mg SUBCUT QWEEK 02/06/24 08/20/24 History mg/3 mL) subcutaneous pen injector (Ozempic) tadalafil 5 mg tablet 5 mg PO DAILY 02/06/24 06/11/24 History tadalafil 20 mg tablet 10 - 20 mg PO DAILY PRN intercourse 03/12/24 06/11/24 History alprazolam 0.5 mg tablet (Xanax) 0.5 mg PO .COMPLEX PRN Pre MRI or 08/07/24 08/20/24 Rx Procedure #5 tabs gabapentin 600 mg tablet 1,200 mg PO BEDTIME 08/20/24 08/20/24 History Allergies Allergy/AdvReac Type Severity Reaction Status Date / Time No Known Drug Allergies Allergy Verified 08/20/24 08:15 Exam Narrative Exam Narrative: Oropharynx free of lesions Chest clear to auscultation percussion Cardiac exam reveals no S3 or murmur Assessment & Plan Assessment & Plan narrative: Follow-up screening colonoscopy last 15 years ago. Risks, benefits, alternatives have been explained. Time-Based Coding :: [TOTAL MINUTES] spent with patient and on the chart (including review of chart, obtaining history, exam, reviewing outside data, placing orders, documenting exam and treatment plan, and counseling patient) on [DATE]. [employer] Super[employer] Document charge(s): No
--- NOTE | 2024-08-20 08:34 | PM.OP.COLON ---
Operative Date/Time/Diagnoses Date of procedure: 08/20/24 Pre-op diagnosis: See indication and findings Procedure & Clinicians Study performed: Colonoscopy Same procedure as scheduled: Yes Indications: 1st Screening Surgeon: Aura Trevino Procedure Notes Procedure in detail: After informed consent was obtained the patient was placed in left lateral decubitus position. The video colonoscope was introduced the rectum slowly advanced cecum. Preparation was good. On slow withdrawal mucosa was carefully examined. The scope was removed. The patient tolerated procedure well. Blood loss none Complications none Sedation mac Findings 1. Normal colonoscopy to cecum Patient should have follow-up colonoscopy in 10 years
[2024-08-20 08:37] VITALS: BP 123/83; PULSE 68; RESP 14; TEMP 36.6; O2SAT 97
[2024-08-20] MEDS: LACTATED RINGERS 1,000 ML 42 ML IV (08:40)
[2024-08-20 09:24] VITALS: BP 105/72; PULSE 65; RESP 20; TEMP 36.4; O2SAT 97
[2024-08-20 09:29] VITALS: BP 109/78; PULSE 63; RESP 19; O2SAT 96
[2024-08-20 09:34] VITALS: BP 118/83; PULSE 65; RESP 20; TEMP 36.2; O2SAT 98
[2024-08-20 09:42] VITALS: BP 112/83; PULSE 65; RESP 22; TEMP 36.2; O2SAT 96
== END 2024-08-20 09:50 | disposition home or self-care (01) ==
PROVIDERS: Family Provider Physician Assistant; PCP Physician Assistant; Referring Provider Internal Medicine Gastroenterology; Visit Provider Internal Medicine Gastroenterology
PROC: 0DJD8ZZ Inspection of Lower Intestinal Tract, Via Natural or Artificial Opening Endoscopic (ICD-10-PCS; CPT 45378; principal; 2024-08-20 09:00)
DX: Z12.11 Encounter for screening for malignant neoplasm of colon (principal); Z87.891 Personal history of nicotine dependence
CPT/HCPCS: G0121; J2704

== ENCOUNTER 2025-02-19 08:35 | Outpatient (CLI) | payer MEDICARE, SELFPAY ==
[2025-02-19] VITALS (9 sets, daily range): BP systolic 110–130; BP diastolic 73–85; PULSE 68–79; RESP 16–20; TEMP 36.7; O2SAT 95–99
[2025-02-19] MEDS: MIDAZOLAM 2 MG/2 ML VIAL IV (09:56)
--- NOTE | 2025-02-19 10:10 | P.PCN_ITS ---
Date/Time/Diagnoses Date of procedure: 02/19/25 Time of procedure: 10:10 Pre-procedure diagnosis: 1. FACET ARTHROPATHY 2. AXIAL NECK PAIN Post-procedure diagnosis: same Procedure Notes Procedure: 1. FLUOROSCOPICALLY GUIDED, CONTRAST-CONTROLLED RIGHT C5/6 AND C6/7 FACET JOINT INJECTIONS WITH CONSCIOUS SEDATION. Indications: Alejo is referred by GEORGE Jarrett for treatment of Axial Neck Pain Physician: Naeem Mendenhall Total Fluoroscopy time (seconds): 6 Total sedation minutes: 10 Complications: none Procedure in detail & Post-procedure care: DESCRIPTION OF PROCEDURE Fluoroscopically guided, contrast-controlled right C5/6 and C6/7 facet joint injections with conscious sedation. Following review of allergy and review of potential side effects and complications, including, but not necessarily limited to, infection, allergic reaction, local tissue breakdown, stroke, temporary or permanent nerve injury and paralysis, the patient indicated that the patient understood and agreed to proceed. An informed consent document was signed by the patient, witnessed by a nurse, and placed in the patient's chart. Additionally, other treatment options including medications, modalities, and physical therapy were reviewed with the patient. After review of previous anaesthesic history and IV conscious sedation the patient was deemed safe to proceed with today?s procedure with IV conscious sedation as ASA class II designation. Safety time-out was performed to confirm patient ID, procedure to be performed and site of procedure. IV sedation was accomplished with a combination of 2mg of Versed was administered by the RN after DO order, titrated to patient comfort during the course of the procedure while the patient remained responsive to all verbal commands In the prone position, following sterile prep and drape of the cervical spine region, the posterior aspect of the right C5/6 and C6/7 facet joints were identified fluoroscopically. The skin was anesthetized via a 25-gauge 1.5-inch needle with 1% lidocaine solution into the corresponding facet joints. At this point, a 25-gauge 2.5-inch spinal needle was atraumatically introduced and advanced under fluoroscopic guidance into the corresponding facet joints. Following negative aspiration, injections of approximately 0.2-cc of Isovue 200 confirmed interarticular placement without vascular uptake. At this point, a total of 1cc including 0.5cc or 5mg of dexamethasone combined with 0.5 cc of 1% lidocaine solution was injected without complication into each of the corresponding facet joints. The procedure tolerated the procedure well without signs or symptoms of complications prior to transfer to the recovery area continued monitoring without incident. The patient was then transferred to the recovery area where they were observed for an appropriate period of time after the injection. The patient reported a VAS score of 7 prior to the procedure and a post- procedure VAS of 0. POST OP INSTRUCTIONS They were provided a Pain Log to continue to record their response to the target-specific procedure prior to their follow-up visit with their referring physician. Additionally, specific post-injection care instructions and a contact number to our office were provided if concerns arise regarding possible complications associated with the procedure are suspected.
== END 2025-02-19 11:10 | disposition home or self-care (01) ==
LOC: RAD 08:35
PROVIDERS: PCP Physician Assistant; Referring Provider Physical Medicine & Rehabilitation; Visit Provider Physical Medicine & Rehabilitation
DX: M47.812 Spondylosis without myelopathy or radiculopathy, cervical region (principal)
CPT/HCPCS: 64490; 64491; 99152; J1100; J2250